=== PATIENT | female | born 1990 | race Caucasian/White ===

== ENCOUNTER 2016-04-14 14:47 | Outpatient (CLI) | END 2016-04-14 14:48 | disposition home or self-care (01) ==

== ENCOUNTER 2016-06-26 22:03 | Emergency (ER) | payer MEDICAID | END 2016-06-26 23:13 | disposition home or self-care (01) | DX: S93.401A Sprain of unspecified ligament of right ankle, initial encounter (principal); X50.0XXA Overexertion from strenuous movement or load, initial encounter; Y92.017 Garden or yard in single-family (private) house as the place of occurrence of the external cause ==

== ENCOUNTER 2016-08-16 21:20 | Emergency (ER) | payer MEDICAID ==
[2016-08-16] MEDS ORDERED: IBUPROFEN 600 MG TABLET PO STA (23:38)
[2016-08-16] MEDS ORDERED: ONDANSETRON ODT 4 MG TABLET TL STA (23:39)
[2016-08-16] MEDS ORDERED: ONDANSETRON ODT 4 MG TABLET ONE (23:43)
[2016-08-16] MEDS ORDERED: IBUPROFEN 600 MG TABLET PO ONE (23:43)
[2016-08-17] MEDS ORDERED: SODIUM CHLORIDE 0.9% 1,000 ML IV ONE (00:33)
== END 2016-08-17 01:19 | disposition home or self-care (01) ==
DX: M54.5 Low back pain (principal); J06.9 Acute upper respiratory infection, unspecified; B97.89 Other viral agents as the cause of diseases classified elsewhere; H92.01 Otalgia, right ear; R50.9 Fever, unspecified
CPT/HCPCS: 81003; 81025; 87070; 87430; 96360; 99283; 99284; A9270; Q0162

== ENCOUNTER 2016-08-17 17:06 | Emergency (ER) | payer MEDICAID ==
[2016-08-17] MEDS ORDERED: DEXAMETHASONE 10 MG/ML VIAL PO STA (19:27)
[2016-08-17] MEDS ORDERED: DEXAMETHASONE 10 MG/ML VIAL ONE (19:30)
[2016-08-17] MEDS ORDERED: CHERRY SYRUP 10 ML UDC PO ONE (19:30)
== END 2016-08-17 19:41 | disposition home or self-care (01) ==
DX: J06.9 Acute upper respiratory infection, unspecified (principal); B97.89 Other viral agents as the cause of diseases classified elsewhere

== ENCOUNTER 2016-08-29 21:48 | Emergency (ER) | payer MEDICAID ==
[2016-08-29 21:53] VITALS: BP 124/84
[2016-08-29] MEDS ORDERED: PSEUDOEPHEDRINE 30 MG TABLET PO STA (22:01)
[2016-08-29] MEDS ORDERED: AMOXICILLIN 250 MG CAPSULE PO STA (22:01)
--- NOTE | 2016-08-29 22:03 | ED Physician Documentation ---
PD HPI HEENT - Stated complaint Stated Complaint: SORE THROAT, BILAT EAR PX - Chief complaint Chief Complaint: Heent - History obtained from History obtained from: Patient - History of Present Illness Timing - onset: How many weeks ago (2) Timing - details: Gradual onset, Still present Location: Right ear, Left ear Worsens: Swalllowing Associated symptoms: Congestion, Headache, Cough Similar symptoms before: No diagnosis Recently seen: Not recently seen - Additional information Additional information: Patient is a 25 year old female with no significant past medical history who is presenting to the emergency department for ear pain, congestion, fevers, and sore throat. Patient states that the symptoms have been going on for the last 2 weeks and have become progressively worsen. patient states that she came in tonight because the pain was getting so bad and that she could not hear anymore. Review of Systems Constitutional: reports: Fever, Chills Eyes: denies: Loss of vision, Decreased vision Ears: reports: Loss of hearing, Ear pain. denies: Drainage/discharge, Tinnitus/ ringing Nose: reports: Congestion, Sinus pressure / pain. denies: Rhinorrhea / runny nose Throat: reports: Sore throat. denies: Dental pain / toothache Cardiac: denies: Chest pain / pressure, Palpitations Respiratory: reports: Cough. denies: Wheezing GI: denies: Abdominal Pain, Nausea, Vomiting : denies: Dysuria, Frequency, Hesitancy Skin: denies: Rash, Lesions Musculoskeletal: denies: Neck pain, Back pain, Extremity pain Neurologic: denies: Generalized weakness, Focal weakness, Numbness Immunocompromised: denies: Immunocompromised PD PAST MEDICAL HISTORY - Past Medical History Past Medical History: No Cardiovascular: None Respiratory: None Neuro: None Endocrine/Autoimmune: None GI: None CO OP: None : None HEENT: None Psych: None Musculoskeletal: None Derm: None - Past Surgical History Past Surgical History: Yes /CO OP: section HEENT: Myringotomy (tubes) - Present Medications Home Medications: Ambulatory Orders Medication Instructions Recorded Confirmed Ethinyl Estradiol/Drospirenone 1 tab PO DAILY 06/26/16 08/17/16 [Kerline 28 Tablet] Amoxicillin 1,000 mg PO TID #30 capsule 08/29/16 - Allergies Allergies/Adverse Reactions: Allergies Allergy/AdvReac Type Severity Reaction Status Date / Time No Known Drug Allergies Allergy Verified 08/29/16 21:58 - Social History Does the pt smoke?: No Smoking Status: Never smoker Does the pt drink ETOH?: No Does the pt have substance abuse?: No - Immunizations Immunizations are current?: Yes - POLST Patient has POLST: No PD ED PE NORMAL - General General: Alert and oriented X 3, No acute distress - HEENT HEENT: Atraumatic, PERRL - Neck Neck: Supple, no meningeal sign - Cardiac Cardiac: RRR, No murmur - Respiratory Respiratory: No respiratory distress, Clear bilaterally - Abdomen Abdomen: Soft, Non tender, Non distended - Derm Derm: Normal color, Warm and dry, No rash - Extremities Extremities: No deformity, No edema - Neuro Neuro: Alert and oriented X 3, 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, No motor deficit, No sensory deficit, Normal speech - Psych Psych: Normal mood, Normal affect PD ED PE EXPANDED - HEENT HEENT: R TM loss of landmarks, L TM loss of landmarks (serious buid up in both ears, worse on the left ), Nasal congestion, Other (post nasal drip) Results - Vitals Vitals: Vital Signs - 24 hr 08/29/16 21:49 Temperature 36.5 C Heart Rate 84 Respiratory 16 Rate Blood Pressure 124/84 H O2 Saturation 100 Oxygen O2 Source Room air PD MEDICAL DECISION MAKING - ED course Complexity details: reviewed old records, re-evaluated patient, considered differential, d/w patient ED course: Patient was seen and examined at bedside. patient was in no acute distress, but did have serous accumulation behind her tms. patient was treated with a decongestant and amoxicillin. Patient required no further work up and was stable for discharge with outpatient follow up. Departure - Departure Disposition: 01 Home, Self Care Clinical Impression: Otitis media Condition: Good Instructions: ED Otitis Media Serous Adult Follow-Up: primary,care provider [Other] - Within 1 week Prescriptions: Amoxicillin 1,000 mg PO TID #30 capsule Comments: Your symptoms today are being caused by an inner ear infection. You had your first dose of antibiotics today and will need to take it three times a day for the next 5 days. You should take it with yogurt or probiotics to decrease the GI side effects. You should take over the counter cold and flu meds. you should follow up with your pmd if your symptoms persist over the next week. You should return to the emergency department for change in mental status, uncontrollable fevers, neurological deficit, new, worsening or uncontrollable symptoms.
[2016-08-29] MEDS ORDERED: AMOXICILLIN 250 MG CAPSULE PO ONE (22:04)
[2016-08-29] MEDS ORDERED: PSEUDOEPHEDRINE 30 MG TABLET PO ONE (22:05)
== END 2016-08-29 22:11 | disposition home or self-care (01) ==
LOC: ED 21:48
DX: H66.93 Otitis media, unspecified, bilateral (principal)
CPT/HCPCS: 99283; A9270

== ENCOUNTER 2017-05-04 10:05 | Outpatient (CLI) | payer MEDICAID ==
[2017-05-04 11:42] LABS: T4 (THYROXINE) 9.19 ug/dL (6.09-12.23)
[2017-05-04 11:48] LABS: THYROID STIMULATING HORMONE 1.43 uIU/mL (0.34-5.60)
[2017-05-04 11:49] LABS: FREE T4 (FREE THYROXINE) 0.84 ng/dL (0.58-1.64)
== END 2017-05-04 10:06 | disposition home or self-care (01) ==
LOC: LAB 10:05
PROVIDERS: ATTEND Obstetrics & Gynecology
DX: Z13.29 Encounter for screening for other suspected endocrine disorder (principal)
CPT/HCPCS: 36415; 84436; 84439; 84443

== ENCOUNTER 2018-04-14 15:37 | Outpatient (CLI) | payer MEDICAID ==
[2018-04-14 19:51] LABS: THYROID STIMULATING HORMONE 1.4 uIU/mL (0.34-5.60)
[2018-04-14 20:18] LABS: FOLLICLE STIMULATING HORMONE 4.87 mIU/mL
[2018-04-14 20:19] LABS: LUTEINIZING HORMONE 3.8 mIU/mL
== END 2018-04-14 23:59 | disposition home or self-care (01) ==
LOC: LAB.N 15:37
PROVIDERS: ATTEND Obstetrics & Gynecology
DX: N92.0 Excessive and frequent menstruation with regular cycle (principal)
CPT/HCPCS: 36415; 83001; 83002; 84443

== ENCOUNTER 2018-07-14 09:54 | Emergency (ER) | payer MEDICAID ==
[2018-07-14 10:09] VITALS: BP 111/93
[2018-07-14] MEDS ORDERED: DEXAMETHASONE 10 MG/ML VIAL PO STA (10:11)
--- NOTE | 2018-07-14 10:14 | ED Physician Documentation ---
PD HPI HEENT - Stated complaint Stated Complaint: RIGHT EAR PX - Chief complaint Chief Complaint: Heent - History obtained from History obtained from: Patient - History of Present Illness Timing - onset: How many days ago (3) Timing - duration: Days (3) Timing - details: Gradual onset, Still present Location: Right ear, Throat Improves: Medication Worsens: Swalllowing Associated symptoms: Congestion, Rhinorrhea, Headache, Cough Similar symptoms before: Diagnosis (OM) Recently seen: Not recently seen - Additional information Additional information: 27-year-old female with 2 young children who are sick with otitis has developed cough congestion and ear pain. She has had these symptoms previously she has been treated for otitis in August of last year. Review of Systems Constitutional: denies: Fever Eyes: denies: Decreased vision Ears: reports: Ear pain Nose: reports: Rhinorrhea / runny nose, Congestion Throat: reports: Sore throat Cardiac: denies: Chest pain / pressure, Palpitations Respiratory: reports: Cough. 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 : None HEENT: None Psych: None Musculoskeletal: None Derm: None - Past Surgical History Past Surgical History: Yes /STEEL ERECTING PUSHER: section HEENT: Myringotomy (tubes) - Present Medications Home Medications: Ambulatory Orders Medication Instructions Recorded Confirmed Ethinyl Estradiol/Drospirenone 1 tab PO DAILY 06/26/16 08/17/16 [Kerline 28 Tablet] Amoxicillin 1,000 mg PO TID #30 capsule 08/29/16 Amox/Clav 875/125 [Augmentin] 1 each PO Q12H #20 tablet 07/14/18 - Allergies Allergies/Adverse Reactions: Allergies Allergy/AdvReac Type Severity Reaction Status Date / Time No Known Drug Allergies Allergy Verified 07/14/18 10:03 - Social History Does the pt smoke?: No Smoking Status: Never smoker Does the pt drink ETOH?: No Does the pt have substance abuse?: No - Immunizations Immunizations are current?: Yes - POLST Patient has POLST: No PD ED PE NORMAL - Vitals Vital signs reviewed: Yes (tachy and hypertensive ) - General General: Alert and oriented X 3, No acute distress, Well developed/nourished - HEENT HEENT: Atraumatic, PERRL, EOMI, Pharynx benign, Other (both TM's are inflamed with distortion of the landmarks. The left is more inflamed than the right. 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 Departure - Departure Disposition: 01 Home, Self Care Clinical Impression: Otitis media Condition: Stable Instructions: ED Otitis Media Acute Adult Follow-Up: Segundo Albarran MD [Primary Care Provider] - Prescriptions: Amox/Clav 875/125 [Augmentin] 1 each PO Q12H #20 tablet
[2018-07-14] MEDS ORDERED: CHERRY SYRUP 10 ML UDC PO ONE (10:19)
== END 2018-07-14 10:19 | disposition home or self-care (01) ==
LOC: ED 09:54
DX: H66.90 Otitis media, unspecified, unspecified ear (principal)
CPT/HCPCS: 99283; A9270

== ENCOUNTER 2018-07-26 09:11 | Emergency (ER) | payer MEDICAID ==
[2018-07-26 09:19] VITALS: BP 132/83
[2018-07-26] MEDS ORDERED: CHERRY SYRUP 10 ML UDC PO ONE (09:49)
[2018-07-26] MEDS ORDERED: DEXAMETHASONE 10 MG/ML VIAL PO STA (09:49)
--- NOTE | 2018-07-26 09:52 | ED Physician Documentation ---
PD HPI HEENT - Stated complaint Stated Complaint: R EAR PX - Chief complaint Chief Complaint: Heent - History obtained from History obtained from: Patient - History of Present Illness Timing - onset: How many days ago (3) Timing - duration: Days (3) Timing - details: Gradual onset, Still present Location: Right ear Improves: Other (warm compress) Worsens: Swalllowing Associated symptoms: Congestion, Rhinorrhea, Cough Similar symptoms before: Diagnosis (OM) Recently seen: Emergency Dept - Additional information Additional information: 27-year-old female diagnosed with bilateral otitis 12 days ago finished a course of Augmentin and during the last part of the course she began to experience worsening pain in the right ear. She has persistence of this and she has some cough. She is now coughing up some yellow and green phlegm again. She reports that she did get some relief with the prior treatment that started the evening that she got home. Her symptoms have now again worsened. Review of Systems Constitutional: denies: Fever Eyes: denies: Decreased vision Ears: reports: Ear pain Nose: reports: Rhinorrhea / runny nose, Congestion Throat: reports: Sore throat Cardiac: denies: Chest pain / pressure, Palpitations Respiratory: reports: Cough. 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 : None HEENT: None Psych: None Musculoskeletal: None Derm: None - Past Surgical History Past Surgical History: Yes /PHOTO MASK INSPECTOR: section HEENT: Myringotomy (tubes) - Present Medications Home Medications: Ambulatory Orders Medication Instructions Recorded Confirmed Ethinyl Estradiol/Drospirenone 1 tab PO DAILY 06/26/16 08/17/16 [Kerline 28 Tablet] Amoxicillin 1,000 mg PO TID #30 capsule 08/29/16 Amox/Clav 875/125 [Augmentin] 1 each PO Q12H #20 tablet 07/14/18 Azithromycin [Zithromax] 250 mg PO DAILY #6 tablet 07/26/18 - Allergies Allergies/Adverse Reactions: Allergies Allergy/AdvReac Type Severity Reaction Status Date / Time No Known Drug Allergies Allergy Verified 07/26/18 09:19 - Social History Does the pt smoke?: No Smoking Status: Never smoker Does the pt drink ETOH?: No Does the pt have substance abuse?: No - Immunizations Immunizations are current?: Yes - POLST Patient has POLST: No PD ED PE NORMAL - Vitals Vital signs reviewed: Yes (hpyertensive ) - General General: Alert and oriented X 3, No acute distress, Well developed/nourished - HEENT HEENT: Atraumatic, PERRL, EOMI, Pharynx benign, Other (The right TM is inflamed along the anterior rim only and there is retraction of the TM. The left is clear. 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, No motor deficit, No sensory deficit, Normal speech Eye Opening: Spontaneous Motor: Obeys Commands Verbal: Oriented GCS Score: 15 - Psych Psych: Normal mood, Other (affect is flat ) Results - Vitals Vitals: Vital Signs - 24 hr 07/26/18 09:17 Temperature 35.9 C L Heart Rate 100 Respiratory 17 Rate Blood Pressure 132/83 H O2 Saturation 100 Oxygen O2 Source Room air PD MEDICAL DECISION MAKING - ED course Complexity details: reviewed old records, considered differential, d/w patient ED course: 27-year-old female with recurrent right otitis while on Augmentin is administered dexamethasone 10 mg orally we will place her on to a azithromycin. Departure - Departure Disposition: 01 Home, Self Care Clinical Impression: Otitis media Qualifiers: Otitis media type: suppurative Chronicity: acute Laterality: right Recurrence: recurrent Spontaneous tympanic membrane rupture: without spontaneous rupture Qualified Code(s): H66.004 - Acute suppurative otitis media without spontaneous rupture of ear drum, recurrent, right ear Condition: Stable Instructions: ED Otitis Media Acute Adult Follow-Up: [facility] [Provider Group] Prescriptions: Azithromycin [Zithromax] 250 mg PO DAILY #6 tablet
== END 2018-07-26 09:58 | disposition home or self-care (01) ==
LOC: ED 09:11
DX: H66.004 Acute suppurative otitis media without spontaneous rupture of ear drum, recurrent, right ear (principal)
CPT/HCPCS: 99283

== ENCOUNTER 2018-10-03 08:00 | Outpatient (CLI) | payer MEDICAID ==
[2018-10-03 12:13] LABS: BASOPHILS % (AUTO) 0.5 %; EOSINOPHILS # (AUTO) 0.2 10^3/uL (0.0-0.7); EOSINOPHILS % (AUTO) 2.5 %; HGB - HEMOGLOBIN 12.8 g/dL (12.0-16.0); LYMPHOCYTES # (AUTO) 2.4 10^3/uL (1.5-3.5); LYMPHOCYTES % (AUTO) 40.2 %; MEAN CORPUSCULAR HEMOGLOBIN 28.9 pg (27.0-31.0); MEAN CORPUSCULAR HGB CONC 32.4 g/dL (32.0-36.0); MEAN CORPUSCULAR VOLUME 89.2 fL (81.0-99.0); MONOCYTES # (AUTO) 0.4 10^3/uL (0.0-1.0); MONOCYTES % (AUTO) 6.2 %; NEUTROPHILS % (AUTO) 50.4 %; PLT - PLATELET COUNT 393 10^3/uL (130-450); RED BLOOD COUNT 4.43 10^6/uL (4.20-5.40); RED CELL DISTRIBUTION WIDTH 12.4 % (12.0-15.0); WHITE BLOOD COUNT 5.9 x10^3/uL (4.8-10.8)
[2018-10-03 12:36] LABS: T4 (THYROXINE) 7.36 ug/dL (6.09-12.23)
[2018-10-03 12:40] LABS: THYROID STIMULATING HORMONE 1.87 uIU/mL (0.34-5.60)
[2018-10-03 12:42] LABS: ALBUMIN/GLOBULIN RATIO 1.3 (1.0-2.2); BILIRUBIN,TOTAL 0.5 mg/dL (0.2-1.0); CALCIUM 9.2 mg/dL (8.5-10.3); CREATININE 0.4 mg/dL (0.4-1.0); TOTAL PROTEIN 7.2 g/dL (6.7-8.2)
[2018-10-03 12:44] LABS: HB2 TOTAL 13.4 g/dL; HEMOGLOBIN A1C 0.48 g/dL; HEMOGLOBIN A1C % 5.4 % (4.6-6.2)
== END 2018-10-03 23:59 | disposition home or self-care (01) ==
LOC: LAB.WCP 08:00
PROVIDERS: ATTEND Physician Assistant
DX: Z00.00 Encounter for general adult medical examination without abnormal findings (principal); R53.83 Other fatigue
CPT/HCPCS: 36415; 80053; 83036; 84436; 84443; 85025

== ENCOUNTER 2019-12-22 07:00 | Outpatient (CLI) | payer MEDICAID ==
[2019-12-22 18:51] LABS: MUDS CUTOFF CONCENTRATIONS CUTOFF CONC BELOW:
[2019-12-22 19:28] LABS: BILIRUBIN,URINE NEGATIVE (NEGATIVE); GLUCOSE, URINE (UA) NEGATIVE (NEGATIVE); KETONES,URINE (UA) NEGATIVE (NEGATIVE); LEUKOCYTE ESTERASE, URINE NEGATIVE (NEGATIVE); NITRITE,URINE NEGATIVE (NEGATIVE); OCCULT BLOOD,URINE NEGATIVE (NEGATIVE); PROTEIN,URINE NEGATIVE (NEGATIVE); UROBILINOGEN,URINE 0.2 (NORMAL) E.U./dL (NORMAL)
[2019-12-22 19:33] LABS: CLARITY,URINE CLEAR (CLEAR)
[2019-12-22 19:37] LABS: AMPHETAMINE SCREEN,URINE NEGATIVE (NEGATIVE); BENZODIAZEPINES SCREEN, URINE NEGATIVE (NEGATIVE); COCAINE SCREEN URINE NEGATIVE (NEGATIVE); METHADONE SCREEN, URINE NEGATIVE (NEGATIVE); METHAMPHETAMINES SCREEN, URINE NEGATIVE (NEGATIVE); OPIATE SCREEN, URINE NEGATIVE (NEGATIVE); OXYCODONE SCREEN, URINE NEGATIVE (NEGATIVE); PROPOXYPHENE SCREEN, URINE NEGATIVE (NEGATIVE); TRICYCLIC ANTIDEPRESSANT,URINE NEGATIVE (NEGATIVE)
[2019-12-22 19:52] LABS: BACTERIA,URINE Moderate /HPF (None Seen); RBC,URINE 0-5 /HPF (0-5); SQUAMOUS EPITHELIAL CELL,UR MOD Squamous (<= Few)
== END 2019-12-22 23:59 | disposition home or self-care (01) ==
LOC: LAB.R 07:00
PROVIDERS: ATTEND Nurse Practitioner Obstetrics & Gynecology
DX: Z32.01 Encounter for pregnancy test, result positive (principal)
CPT/HCPCS: 80306; 81001; 87086

== ENCOUNTER 2019-12-31 18:03 | Outpatient (CLI) | payer MEDICAID ==
--- NOTE | 2019-12-31 19:09 | Ultrasound Report ---
PROCEDURE: OB First Trimester INDICATIONS: POSITIVE TEST OUTSIDE/PRIOR DATING DATA: Last menstrual period (LMP): 10/12/2019. LMP-based estimated date of delivery (SERA): 07/18/2020. First dating scan (date and location): Current exam. Estimated date of delivery (SERA) from first dating scan: 08/23/2020. TECHNIQUE: Real-time scanning was performed of the fetus and maternal pelvic organs, with image documentation. COMPARISON: No previous study is available for comparison FINDINGS: Embryo: Intrauterine gestational sac is seen with yolk sac and pole. The crown-rump length is consistent with a 6 week 2 day gestation. heart rate is 131 bpm. A small subchorionic hemorrhag e is seen measuring 0.5 x 0.4 x 0.4 cm. Measurement variability in dating: +/- 4 weeks by LMP, +/- 7 days by mean sac diameter (use before 6 weeks gestation if crown-rump length not able to be measured), +/- 5 days by crown-rump length (6-12 weeks gestation). Maternal organs: The uterus is retroverted. Ovaries are within normal limits in size. A left ovarian corpus luteum cyst is noted.. There is trace free fluid in the pelvis. Limited images through the k idneys demonstrate no hydronephrosis. IMPRESSION: 1. Single live intrauterine with crown-rump length compatible with a 6 week 2 day gestatio n giving an SERA of 08/21/2020. heart rate is 131 bpm. 2. Small subchorionic hemorrhage measures 5 x 4 x 4 mm. Reviewed by: Carlyle Watson MD on 12/31/2019 7:08 PM PDT Approved by: Carlyle Watson MD on 12/31/2019 7:08 PM PDT Station ID: [id number]
--- NOTE | 2020-01-01 07:33 | Ultrasound Report ---
PROCEDURE: OB Transvaginal INDICATIONS: POSITIVE TEST OUTSIDE/PRIOR DATING DATA: Last menstrual period (LMP): 10/12/2019. LMP-based estimated date of delivery (SERA): 07/18/2020. First dating scan (date and location): Current exam. Estimated date of delivery (SERA) from first dating scan: 08/23/2020. TECHNIQUE: Real-time scanning was performed of the fetus and maternal pelvic organs, with image documentation. Please note that the transvaginal images from this exam are included on the OB first trimester ultras ound exam (accession number [id number]) performed at the same time. COMPARISON: No previous study is available for comparison FINDINGS: Embryo: Intrauterine gestational sac is seen with yolk sac and pole. The crown-rump length is consistent with a 6 week 2 day gestation. heart rate is 131 bpm. A small subchorionic hemorrhag e is seen measuring 0.5 x 0.4 x 0.4 cm. Measurement variability in dating: +/- 4 weeks by LMP, +/- 7 days by mean sac diameter (use before 6 weeks gestation if crown-rump length not able to be measured), +/- 5 days by crown-rump length (6-12 weeks gestation). Maternal organs: The uterus is retroverted. Ovaries are within normal limits in size. A left ovarian corpus luteum cyst is noted.. There is trace free fluid in the pelvis. Limited images through the k idneys demonstrate no hydronephrosis. IMPRESSION: 1. Single live intrauterine with crown-rump length compatible with a 6 week 2 day gestatio n giving an SERA of 08/21/2020. heart rate is 131 bpm. 2. Small subchorionic hemorrhage measures 5 x 4 x 4 mm. Reviewed by: Carlyle Watson MD on 12/31/2019 7:10 PM PDT Approved by: Carlyle Watson MD on 12/31/2019 7:10 PM PDT Station ID: [id number]
== END 2019-12-31 18:04 | disposition home or self-care (01) ==
LOC: DI 18:03
PROVIDERS: ATTEND Nurse Practitioner Obstetrics & Gynecology
DX: Z32.01 Encounter for pregnancy test, result positive (principal)
CPT/HCPCS: 76801; 76817

== ENCOUNTER 2020-01-25 13:10 | Outpatient (CLI) | payer MEDICAID ==
[2020-01-25 13:37] LABS: BASOPHILS % (AUTO) 0.3 %; EOSINOPHILS % (AUTO) 0.4 %; HGB - HEMOGLOBIN 13.2 g/dL (12.0-16.0); LYMPHOCYTES # (AUTO) 2.4 10^3/uL (1.5-3.5); LYMPHOCYTES % (AUTO) 25.4 %; MEAN CORPUSCULAR HEMOGLOBIN 30.2 pg (27.0-31.0); MEAN CORPUSCULAR HGB CONC 34.2 g/dL (32.0-36.0); MEAN CORPUSCULAR VOLUME 88.3 fL (81.0-99.0); MEAN PLATELET VOLUME 9.3 fL (7.9-10.8); MONOCYTES # (AUTO) 0.5 10^3/uL (0.0-1.0); MONOCYTES % (AUTO) 5.2 %; NEUTROPHILS # (AUTO) 6.4 10^3/uL (1.5-6.6); NEUTROPHILS % (AUTO) 68.4 %; PLT - PLATELET COUNT 352 10^3/uL (130-450); RED BLOOD COUNT 4.37 10^6/uL (4.20-5.40); RED CELL DISTRIBUTION WIDTH 12.3 % (12.0-15.0); WHITE BLOOD COUNT 9.4 x10^3/uL (4.8-10.8)
[2020-01-25 13:38] LABS: BILIRUBIN,URINE NEGATIVE (NEGATIVE); GLUCOSE, URINE (UA) NEGATIVE (NEGATIVE); KETONES,URINE (UA) TRACE mg/dL (NEGATIVE); LEUKOCYTE ESTERASE, URINE NEGATIVE (NEGATIVE); NITRITE,URINE NEGATIVE (NEGATIVE); OCCULT BLOOD,URINE NEGATIVE (NEGATIVE); PH,URINE 5.5 PH (5.0-7.5); PROTEIN,URINE NEGATIVE (NEGATIVE); UROBILINOGEN,URINE 0.2 (NORMAL) E.U./dL (NORMAL)
[2020-01-25 13:39] LABS: CLARITY,URINE CLEAR (CLEAR)
[2020-01-25 13:50] LABS: ALBUMIN 3.6 g/dL (3.2-5.5); BACTERIA,URINE Few /HPF (None Seen); BILIRUBIN,TOTAL 0.3 mg/dL (0.2-1.0); CALCIUM 9.2 mg/dL (8.5-10.3); CREATININE 0.5 mg/dL (0.4-1.0); RBC,URINE 0-5 /HPF (0-5); SQUAMOUS EPITHELIAL CELL,UR MOD Squamous (<= Few); TOTAL PROTEIN 7.1 g/dL (6.7-8.2)
[2020-01-25 14:04] LABS: CREATININE,URINE 253.2 mg/dL
[2020-01-26 12:14] LABS: HEPATITIS C ANTIBODY NON-REACTIVE (NON-REACTIVE)
[2020-01-26 12:42] LABS: HEPATITIS B SURFACE ANTIGEN NON-REACTIVE (NON-REACTIVE)
[2020-01-26 13:25] LABS: HIV AG/AB 4TH GEN NON-REACTIVE (NON-REACTIVE)
== END 2020-01-25 13:11 | disposition home or self-care (01) ==
LOC: LAB 13:10
PROVIDERS: ATTEND Obstetrics & Gynecology
DX: Z36.8A Encounter for antenatal screening for other genetic defects (principal); O12.11 Gestational proteinuria, first trimester; O99.211 Obesity complicating pregnancy, first trimester; Z3A.00 Weeks of gestation of pregnancy not specified
CPT/HCPCS: 36415; 80053; 81001; 81599; 82570; 83036; 84156; 84443; 85025; 86592; 86762; 86787; 86803; 86850; 86900; 86901; 87086; 87340; 87389

== ENCOUNTER 2020-02-01 08:00 | Outpatient (CLI) | payer MEDICAID ==
[2020-02-01 15:57] LABS: CREATININE 24 HOUR,URINE 1557 mg/24h (600-1800); CREATININE,URINE 55.6 mg/dL; TOTAL PROTEIN,URINE TIMED < 6 mg/dL; TOTAL VOLUME 24HRS,URINE 2800 mL
== END 2020-02-01 23:59 ==
LOC: LAB.R 08:00
PROVIDERS: ATTEND Obstetrics & Gynecology
DX: R80.9 Proteinuria, unspecified (principal)
CPT/HCPCS: 82570; 84156

== ENCOUNTER 2020-02-01 13:23 | Outpatient (CLI) | payer MEDICAID ==
[2020-02-01 20:25] LABS: HEMOGLOBIN A1c% 4.9 % (4.27-6.07)
== END 2020-02-01 13:24 | disposition home or self-care (01) ==
LOC: LAB 13:23
PROVIDERS: ATTEND Obstetrics & Gynecology
DX: O99.211 Obesity complicating pregnancy, first trimester (principal); R80.9 Proteinuria, unspecified
CPT/HCPCS: 36415; 82570; 83036; 84156

== ENCOUNTER 2020-02-15 13:14 | Outpatient (CLI) | payer MEDICAID | END 2020-02-15 13:15 | disposition home or self-care (01) | LOC: LAB 13:14 | PROVIDERS: ATTEND Obstetrics & Gynecology | DX: O99.211 Obesity complicating pregnancy, first trimester (principal) | CPT/HCPCS: 36415; 82950 ==

== ENCOUNTER 2020-04-03 14:50 | Outpatient (CLI) | payer MEDICAID ==
--- NOTE | 2020-04-04 09:40 | Ultrasound Report ---
PROCEDURE: OB Detailed Eval INDICATIONS: SUPERVISION OF NORMAL OUTSIDE/PRIOR DATING DATA: Last menstrual period (LMP): 02/02/2020. LMP-based estimated date of delivery (SERA): 07/18/2020 First dating scan (date and location): 10/30/2019. Estimated date of delivery (SERA) from first dating scan: 08/23/2020. TECHNIQUE: Real-time scanning was performed of the fetus, with image documentation and biometric measurements. Endovaginal scanning: Not performed COMPARISON: None. FINDINGS: This exam is limited due to maternal body habitus. General: A single living intrauterine gestation is present. Presentation: Variable Placenta: Placental position is posterior and low-lying, with a placental edge to cervical os distan ce of 6 mm. Amniotic fluid index: 17.5 cm, 79th percentile for gestational age. heart rate: 162 beats per minute. Maternal cervical canal: 5.4 cm long; normal length is 2.5 cm or more. biometrics: Biparietal diameter: 5.1 cm Head circumference: 19.1 cm Abdominal circumference: 16.4 cm Femur length: 3.3 cm Estimated gestational age from initial scan: not applicable. Composite gestational age from present scan: 20 weeks 5 days Estimated weight and percentile: 393 g, 98th percentile Measurement variability in biometric dating: +/- 10 days from 12-20 weeks gestation, +/- 2 weeks from 20-30 weeks gestation, +/- 3 weeks at 30 weeks gestation or later. Anatomic survey: Neuro: Ventricles are normal at less than 10 mm. Cisterna magna is normal at 3-11 mm. Cerebellum i s normal in size and morphology. Nuchal skin fold: Not well seen due to maternal body habitus. Face: Nose and lips, facial profile are normal. Spine: Grossly no evidence for dysraphism, although a repeat scan is recommended to confirm Heart: 4-chambered heart is present, with normal ventricular outflow tracts. Diaphragm: Diaphragm is intact. Stomach: Left-sided stomach is present. Kidneys: No hydronephrosis. Normal is less than 5 mm in 2nd trimester, less than 7 mm in 3rd trimester. Cord: 3 vessel cord has orthotopic insertion. Bladder: Normal in size. Extremities: All 4 extremities are visualized. IMPRESSION: Single live intrauterine gestation with average ultrasound age of 20 weeks 5 days. Limited anatomic evaluation due to maternal body habitus. Specifically the nuchal fold and spin e are not well seen. Repeat evaluation is recommended. Reviewed by: Yariel Fatima MD on 04/04/2020 9:39 AM PST Approved by: Yariel Fatima MD on 04/04/2020 9:39 AM PST Station ID: [id number]
== END 2020-04-03 14:51 | disposition home or self-care (01) ==
LOC: DI 14:50
PROVIDERS: ATTEND Obstetrics & Gynecology
DX: Z34.90 Encounter for supervision of normal pregnancy, unspecified, unspecified trimester (principal)

== ENCOUNTER 2020-05-08 15:20 | Outpatient (CLI) | payer MEDICAID ==
--- NOTE | 2020-05-08 16:54 | Ultrasound Report ---
PROCEDURE: OB F/U or Repeat INDICATIONS: OBESITY COMPLICATING , F U TO FAS OUTSIDE/PRIOR DATING DATA: Last menstrual period (LMP): . LMP-based estimated date of delivery (SERA): 07/18/2020. First dating scan (date and location): 12/31/2019. Estimated date of delivery (SERA) from first dating scan: 08/23/2020. TECHNIQUE: Real-time scanning was performed of the fetus, with image documentation and biometric measurements. COMPARISON: OB ultrasound 12/31/2019, 04/03/2020. FINDINGS: General: A single living intrauterine gestation is present. Presentation: Cephalic Placenta: Placental position is posterior, without previa. Placenta is currently measured 4 cm from the internal os. Amniotic fluid index: 24.5 cm, 99th percentile for gestational age. heart rate: 169 beats per minute. Maternal cervical canal: 4.5 cm long; normal length is 2.5 cm or more. biometrics: Estimated gestational age from initial scan: 24 weeks 5 days Other: Spine is within normal limits. Nuchal region as well as neck are still suboptimal evaluation. IMPRESSION: 1. Single live intrauterine with out visualization of previous low-lying placenta. 2. Nuchal region maintains suboptimal evaluation. Spine is within normal limits. Reviewed by: Sonia Grimes MD on 05/08/2020 4:53 PM PST Approved by: Sonia Grimes MD on 05/08/2020 4:53 PM PST Station ID: [id number]
== END 2020-05-08 15:21 | disposition home or self-care (01) ==
LOC: DI 15:20
PROVIDERS: ATTEND Obstetrics & Gynecology
DX: O99.212 Obesity complicating pregnancy, second trimester (principal); Z3A.24 24 weeks gestation of pregnancy

== ENCOUNTER 2020-05-15 08:00 | Outpatient (CLI) | payer MEDICAID ==
[2020-05-15 13:53] LABS: MEAN CORPUSCULAR HEMOGLOBIN 29.3 pg (27.0-31.0); MEAN CORPUSCULAR HGB CONC 32.4 g/dL (32.0-36.0); MEAN CORPUSCULAR VOLUME 90.2 fL (81.0-99.0); MEAN PLATELET VOLUME 9.4 fL (7.9-10.8); RED BLOOD COUNT 3.76 10^6/uL (4.20-5.40); RED CELL DISTRIBUTION WIDTH 12.7 % (12.0-15.0); WHITE BLOOD COUNT 9.7 x10^3/uL (4.8-10.8)
== END 2020-05-15 23:59 | disposition home or self-care (01) ==
LOC: LAB 08:00
PROVIDERS: ATTEND Obstetrics & Gynecology
DX: Z36.8A Encounter for antenatal screening for other genetic defects (principal)
CPT/HCPCS: 36415; 82950; 85027

== ENCOUNTER 2020-06-18 11:42 | Outpatient (CLI) | payer MEDICAID ==
[2020-06-18 12:20] LABS: GTT GLUCOSE,FASTING 89 mg/dL (70-100)
== END 2020-06-18 11:43 | disposition home or self-care (01) ==
LOC: LAB 11:42
PROVIDERS: ATTEND Obstetrics & Gynecology
DX: O36.60X0 Maternal care for excessive fetal growth, unspecified trimester, not applicable or unspecified (principal)
CPT/HCPCS: 36415; 82951; 82952

== ENCOUNTER 2020-07-11 20:20 | Outpatient (CLI) | payer MEDICAID ==
[2020-07-11 20:43] VITALS: BP 102/66
[2020-07-11] MEDS ORDERED: LACTATED RINGERS 1,000 ML IV ONE (21:00)
--- NOTE | 2020-07-17 10:06 | PROCEDURE REPORT ---
- HPI Diagnosis/Indication for NST: Decreased movement Current EDU 08/21/20 Gestation 34 Weeks and 1 Days 3 Para 2 Vital Signs Temperature 37.3 C 07/11/20 20:41 Heart Rate 99 07/11/20 20:41 Respiratory Rate 16 07/11/20 20:41 Blood Pressure 102/66 07/11/20 20:41 O2 Saturation 98 07/11/20 20:41 Temperature 37.3 C 07/11/20 20:41 Heart Rate 99 07/11/20 20:41 Respiratory Rate 16 07/11/20 20:41 Blood Pressure 102/66 07/11/20 20:41 O2 Saturation 98 07/11/20 20:41 - NST Procedure NST Procedure Start Date 07/11/20 Start Time 20:40 Stop Time 21:50 Vibroacoustic Stimulation Used No Patient States Movement Yes: occas today but d/c FM x 5 days - Results and Plan Findings/Impression: Good FM, Reactive NST Plan: Pt left AMA. instructed Re FM, SROM, Contractions
== END 2020-07-11 23:25 | disposition left against medical advice (07) ==
LOC: WFO 20:20 → FBP 20:23 → WFO 22:25
PROVIDERS: ATTEND Obstetrics & Gynecology
DX: O36.8130 Decreased fetal movements, third trimester, not applicable or unspecified (principal); Z3A.34 34 weeks gestation of pregnancy
CPT/HCPCS: 59025; 99213

== ENCOUNTER 2020-07-15 16:41 | Outpatient (CLI) | payer MEDICAID ==
[2020-07-15 17:05] LABS: BILIRUBIN,URINE NEGATIVE (NEGATIVE); GLUCOSE, URINE (UA) NEGATIVE (NEGATIVE); KETONES,URINE (UA) 40 mg/dL (NEGATIVE); LEUKOCYTE ESTERASE, URINE TRACE (NEGATIVE); NITRITE,URINE NEGATIVE (NEGATIVE); OCCULT BLOOD,URINE NEGATIVE (NEGATIVE); PH,URINE 5.5 PH (5.0-7.5); PROTEIN,URINE NEGATIVE (NEGATIVE); UROBILINOGEN,URINE 0.2 (NORMAL) E.U./dL (NORMAL)
[2020-07-15 17:08] VITALS: BP 120/71
[2020-07-15 17:13] LABS: CLARITY,URINE HAZY (CLEAR)
[2020-07-15] MEDS ORDERED: NIFEdipine 10 MG CAPSULE PO ONE (17:20)
--- NOTE | 2020-07-15 17:25 | PROVIDER PROGRESS NOTE ---
- HPI Current : Vital Signs Temperature 98.2 F 07/15/20 16:54 Heart Rate 102 H 07/15/20 16:54 Respiratory Rate 18 07/15/20 16:54 Blood Pressure 120/71 07/15/20 16:54 Temperature 98.2 F 07/15/20 16:54 Heart Rate 102 H 07/15/20 16:54 Respiratory Rate 18 07/15/20 16:54 Blood Pressure 120/71 07/15/20 16:54 O2 Saturation - Procedures NST Procedure: NST Procedure Start Time 20:40 Stop Time 21:50 Service Date of procedure: 07/15/20 Findings: Baseline: BPM 150 Variability: Moderate Accelerations: Present Decelerations: Absent Trends in FHR over time: change in baseline to 135 Ricardo contractions in 10 minutes: 0 Impression: reactive Category 1 NST - Plan Plan: CC: abdominal and vaginal pain HPI: Having constant 6/10 intensity abdominal pain, suprapubic and to the sides, same bilaterally, no radiation, nothing makes it better/worse, associated with nausea for a bit. No changes in urination or defecation. Having stabbing pain in the deep vagina. No VB, LOF, or contractions. Feeling good FM. 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 History: records and PMH reviewed. O: AVSS Alert, resting comfortably, NAD Abd soft, slightly tender bilateral lower quadrant, no rebound EFG normal, vag pink without lesions, physiologic discharge present SVE closed/thick/high UA trace LCAE, rare bact. Neg wet mount and CMP CBC with Hct 31 A/P: 29yo at 34w5d with abdominal pain in 3rd trimester of , likely due to uterine stretching. This has been complicated by macrosomia (DM screening was normal). Possible acute cystitis with small LCE and few bacteria on UA. Due to status and current sx, will treat with keflex now and stop PRN no growth on culture. No evidence of vaginitis, labor, abruption, infection, kidney stone, or appendicitis. Advised that she could be early in a developing disease process--needs to return PRN worsening or with new symptoms. Otherwise rest, hydrate, warm packs, cold packs, stretch. Anemia Hct 31, start Fe.
[2020-07-15 17:27] LABS: BACTERIA,URINE Rare /HPF (None Seen); RBC,URINE 0-5 /HPF (0-5); SQUAMOUS EPITHELIAL CELL,UR FEW Squamous (<= Few); WBC,URINE 0-3 /HPF (0-5)
[2020-07-15 17:32] LABS: BASOPHILS % (AUTO) 0.1 %; EOSINOPHILS % (AUTO) 0.1 %; HCT - HEMATOCRIT 31.4 % (37.0-47.0); HGB - HEMOGLOBIN 10.2 g/dL (12.0-16.0); LYMPHOCYTES # (AUTO) 1.7 10^3/uL (1.5-3.5); LYMPHOCYTES % (AUTO) 19.7 %; MEAN CORPUSCULAR HEMOGLOBIN 26.7 pg (27.0-31.0); MEAN CORPUSCULAR HGB CONC 32.5 g/dL (32.0-36.0); MEAN CORPUSCULAR VOLUME 82.2 fL (81.0-99.0); MEAN PLATELET VOLUME 9.7 fL (7.9-10.8); MONOCYTES # (AUTO) 0.5 10^3/uL (0.0-1.0); MONOCYTES % (AUTO) 5.6 %; NEUTROPHILS # (AUTO) 6.4 10^3/uL (1.5-6.6); NEUTROPHILS % (AUTO) 74.3 %; PLT - PLATELET COUNT 263 10^3/uL (130-450); RED BLOOD COUNT 3.82 10^6/uL (4.20-5.40); WHITE BLOOD COUNT 8.6 x10^3/uL (4.8-10.8)
[2020-07-15 17:41] LABS: ALBUMIN 2.8 g/dL (3.2-5.5); ALBUMIN/GLOBULIN RATIO 0.8 (1.0-2.2); BILIRUBIN,TOTAL 0.5 mg/dL (0.2-1.0); CALCIUM 8.5 mg/dL (8.5-10.3); CREATININE 0.3 mg/dL (0.4-1.0); POTASSIUM 3.5 mmol/L (3.5-5.0); TOTAL PROTEIN 6.2 g/dL (6.7-8.2)
[2020-07-15 22:09] LABS: CHLAMYDIA TRACHOMATIS DNA NEGATIVE (NEGATIVE); NEISSERIA GONORRHOEAE DNA NEGATIVE (NEGATIVE); TRICHOMONAS VAGINALIS DNA NEGATIVE (NEGATIVE)
== END 2020-07-15 18:05 | disposition home or self-care (01) ==
LOC: WFO 16:41 → FBP 16:43 → WFO 18:05
PROVIDERS: ATTEND Obstetrics & Gynecology
DX: O99.891 Other specified diseases and conditions complicating pregnancy (principal); R10.9 Unspecified abdominal pain; Z3A.34 34 weeks gestation of pregnancy
CPT/HCPCS: 80053; 81001; 85025; 87086; 87210; 87491; 87591; 87661; 99213

== ENCOUNTER 2020-07-30 08:00 | Outpatient (CLI) | payer MEDICAID | END 2020-07-30 23:59 | disposition home or self-care (01) | LOC: LAB.WC 08:00 | PROVIDERS: ATTEND Obstetrics & Gynecology | DX: Z36.85 Encounter for antenatal screening for Streptococcus B (principal) | CPT/HCPCS: 87797 ==

== ENCOUNTER 2020-08-02 15:13 | Outpatient (CLI) | payer MEDICAID ==
--- NOTE | 2020-08-02 20:24 | Ultrasound Report ---
PROCEDURE: OB F/U or Repeat INDICATIONS: SUPERVISION OF HIGH RISK OUTSIDE/PRIOR DATING DATA: Last menstrual period (LMP): 10/12/2019. LMP-based estimated date of delivery (SERA): 07/18/2020. First dating scan (date and location): 12/31/2019. Estimated date of delivery (SERA) from first dating scan: 08/21/2020 (provider stated). TECHNIQUE: Real-time scanning was performed of the fetus, with image documentation and biometric measurements. Endovaginal scanning: Not performed COMPARISON: None. FINDINGS: General: A single living intrauterine gestation is present. Presentation: Vertex Placenta: Placental position is posterior, without previa. Amniotic fluid index: 16.3 cm, 67th percentile for gestational age. Largest pocket measures 5.9 cm heart rate: 149 beats per minute. biometrics: Biparietal diameter: 9.66 and a minute, 39 weeks 3 days Head circumference: 35.2 cm, 41 weeks 0 days Abdominal circumference: 33.6 cm, 37 weeks 4 days Femur length: 7.09 cm, 36 weeks 2 days Estimated gestational age from initial scan: 37 weeks 2 days. Composite gestational age from present scan: 38 weeks 4 days Estimated weight and percentile: 3329 g, 75th percentile Measurement variability in biometric dating: +/- 10 days from 12-20 weeks gestation, +/- 2 weeks from 20-30 weeks gestation, +/- 3 weeks at 30 weeks gestation or more. Other: Incidental placental deutsch. Normal appearance of the chest, stomach, kidneys and urinary bladder IMPRESSION: Single living intrauterine fetus in vertex presentation. Normal AMY Reviewed by: Nelson Gallagher MD on 08/02/2020 8:22 PM PDT Approved by: Nelson Gallagher MD on 08/02/2020 8:22 PM PDT Station ID: [id number]
== END 2020-08-02 15:14 | disposition home or self-care (01) ==
LOC: DI 15:13
PROVIDERS: ATTEND Obstetrics & Gynecology
DX: O09.90 Supervision of high risk pregnancy, unspecified, unspecified trimester (principal); O36.60X0 Maternal care for excessive fetal growth, unspecified trimester, not applicable or unspecified; Z3A.00 Weeks of gestation of pregnancy not specified

== ENCOUNTER 2020-08-12 10:59 | Outpatient (CLI) | payer MEDICAID ==
[2020-08-12 11:37] LABS: BASOPHILS % (AUTO) 0.1 %; EOSINOPHILS % (AUTO) 0.3 %; HCT - HEMATOCRIT 32.6 % (37.0-47.0); HGB - HEMOGLOBIN 10.7 g/dL (12.0-16.0); LYMPHOCYTES # (AUTO) 1.6 10^3/uL (1.5-3.5); MEAN CORPUSCULAR HEMOGLOBIN 26.6 pg (27.0-31.0); MEAN CORPUSCULAR HGB CONC 32.8 g/dL (32.0-36.0); MEAN CORPUSCULAR VOLUME 81.1 fL (81.0-99.0); MEAN PLATELET VOLUME 10.2 fL (7.9-10.8); MONOCYTES # (AUTO) 0.5 10^3/uL (0.0-1.0); MONOCYTES % (AUTO) 7.3 %; NEUTROPHILS # (AUTO) 4.7 10^3/uL (1.5-6.6); NEUTROPHILS % (AUTO) 69.2 %; PLT - PLATELET COUNT 253 10^3/uL (130-450); RED BLOOD COUNT 4.02 10^6/uL (4.20-5.40); RED CELL DISTRIBUTION WIDTH 15.2 % (12.0-15.0); WHITE BLOOD COUNT 6.7 x10^3/uL (4.8-10.8)
[2020-08-12 11:55] LABS: ALBUMIN 2.7 g/dL (3.2-5.5); ALBUMIN/GLOBULIN RATIO 0.9 (1.0-2.2); BILIRUBIN,TOTAL 0.4 mg/dL (0.2-1.0); CALCIUM 9.3 mg/dL (8.5-10.3); CREATININE 0.4 mg/dL (0.4-1.0); POTASSIUM 3.8 mmol/L (3.5-5.0); TOTAL PROTEIN 5.8 g/dL (6.7-8.2)
== END 2020-08-12 11:00 | disposition home or self-care (01) ==
LOC: LAB 10:59
PROVIDERS: ATTEND Obstetrics & Gynecology
DX: Z01.812 Encounter for preprocedural laboratory examination (principal); O34.211 Maternal care for low transverse scar from previous cesarean delivery; Z87.59 Personal history of other complications of pregnancy, childbirth and the puerperium; Z20.822 Contact with and (suspected) exposure to COVID-19
CPT/HCPCS: 36415; 80053; 85025; 86850; 86900; 86901

== ENCOUNTER 2020-08-14 05:22 | Inpatient (IN) | payer MEDICAID ==
[2020-08-14] MEDS ORDERED: CITRIC ACID/SODIUM CITRATE 15 ML UDC PO ONE (05:46)
[2020-08-14] MEDS ORDERED: ceFAZolin 3 GM in SODIUM CHLORIDE 0.9% 100ML 100 ML IV ONE (05:46)
[2020-08-14] MEDS ORDERED: LACTATED RINGERS 500 ML IV ONE (05:46)
[2020-08-14] MEDS ORDERED: LIDOCAINE MPF 2%-EPI 1:200000 20 ML VIAL ONE (07:06)
[2020-08-14] MEDS ORDERED: BUPIVACAINE 0.5% PF 30 ML VIAL ONE (07:06)
[2020-08-14] MEDS ORDERED: fentaNYL 100 MCG/2 ML VIAL ONE (07:08)
[2020-08-14] MEDS ORDERED: MORPHINE PF 5 MG/10 ML VIAL ONE (07:08)
[2020-08-14] MEDS ORDERED: OXYTOCIN 10 UNIT/ML VIAL ONE (07:09)
[2020-08-14] MEDS ORDERED: PHENYLEPHRINE 10 MG/ML VIAL ONE (07:11)
--- NOTE | 2020-08-14 07:23 | ANESTHESIA ---
Pre-Anesthesia VS, & Labs - Diagnosis previous c/s, desires sterilization - Procedure repeat c/s with bilateral salpingectomies Vital Signs: Temp Pulse Resp BP Pulse Ox 36.9 C 106 H 20 122/80 98 08/14/20 05:50 08/14/20 05:50 08/14/20 05:50 08/14/20 05:50 08/14/20 05:50 Height: 5 ft Weight (kg): 111.13 kg Body Mass Index: 47.8 BMI Classification: Morbidly Obese - NPO >8 hours - Is Patient ?: Yes Home Medications and Allergies Ethinyl Estradiol/Drospirenone [Kerline 28 Tablet] 1 tab PO DAILY 06/26/16 PNV, iron, baby asa Allergies/Adverse Reactions: Allergies Allergy/AdvReac Type Severity Reaction Status Date / Time No Known Drug Allergies Allergy Verified 07/26/18 09:19 Anes History & Medical History - Anesthetic History Anesthesia Complications: reports: No previous complications - Medical History Cardiovascular: reports: None Pulmonary: reports: None Gastrointestinal: reports: None Urinary: reports: None Neuro: reports: None Musculoskeletal: reports: None Endocrine/Autoimmune: reports: None Blood Disorders: reports: None Skin: reports: None Smoking Status: Never smoker Psychosocial: reports: No issues indicated History of Cancer?: No - Surgical History Eyes Ears Nose Throat (EENT): reports: Myringotomy (tubes), Tonsil/Adenoidectomy Gynecologic: reports: section Exam General: Alert, Oriented x3, Cooperative, No acute distress Dental: WNL Mouth Openin Fingerbreadth Neck Mobility: Normal Mallampati classification: IV Mental/Cognitive Status: Alert/Oriented X3, Normal for patient Plan Anesthesia Type: Spinal Consent for Procedure(s) Verified and Reviewed: Yes Code Status: Attempt Resuscitation ASA classification: 2-Mild systemic disease Is this case an emergency?: No
[2020-08-14] MEDS ORDERED: fentaNYL 100 MCG/2 ML VIAL IVP PRN (07:24)
[2020-08-14] MEDS ORDERED: NALOXONE 0.4 MG/ML VIAL IVP PRN ×2 (07:24→09:23)
[2020-08-14] MEDS ORDERED: METOCLOPRAMIDE 10 MG/2 ML VIAL IVP PRN (07:24)
[2020-08-14] MEDS ORDERED: HYDROmorphone 0.5 MG/0.5 ML SYRINGE IVP PRN (07:24)
[2020-08-14] MEDS ORDERED: ePHEDrine 50 MG/ML VIAL IVP PRN (07:24)
[2020-08-14] MEDS ORDERED: MORPHINE 2 MG/ML CARPUJECT IVP PRN (07:24)
[2020-08-14] MEDS ORDERED: ONDANSETRON 4 MG/2 ML VIAL IVP PRN ×2 (07:24→09:23)
[2020-08-14] MEDS ORDERED: ATROPINE ABBOJECT 1 MG/10 ML SYRINGE IVP PRN (07:24)
[2020-08-14] MEDS ORDERED: CARBOPROST TROMETHAMINE 250 MCG/ML AMP IM ONE (07:42)
[2020-08-14] MEDS ORDERED: miSOPROStoL 200 MCG TABLET ONE (07:42)
[2020-08-14] MEDS ORDERED: METHYLERGONOVINE 0.2 MG/ML VIAL ONE (07:42)
[2020-08-14] MEDS ORDERED: LACTATED RINGERS 1,000 ML IV SCH ×2 (08:00→10:00)
[2020-08-14] MEDS ORDERED: MORPHINE PF 5 MG/10 ML VIAL IT ONE (08:08)
[2020-08-14] MEDS ORDERED: fentaNYL 100 MCG/2 ML VIAL IT ONE (08:08)
[2020-08-14] MEDS ORDERED: LIDOCAINE MPF 2%-EPI 1:200000 20 ML VIAL SUBQ ONE (08:28)
[2020-08-14] MEDS ORDERED: BUPIVACAINE 0.5% PF 30 ML VIAL SUBQ ONE (08:28)
[2020-08-14] MEDS ORDERED: diphenhydrAMINE INJ 50 MG/ML VIAL ONE (08:56)
[2020-08-14] MEDS ORDERED: NALBUPHINE 10 MG/ML AMP IVP PRN (09:23)
[2020-08-14] MEDS ORDERED: diphenhydrAMINE INJ 50 MG/ML VIAL IVP PRN (09:23)
[2020-08-14] MEDS ORDERED: KETOROLAC 30 MG/ML VIAL ONE (09:26)
[2020-08-14] MEDS ORDERED: ONDANSETRON 4 MG/2 ML VIAL ONE (09:32)
[2020-08-14] MEDS ORDERED: LACTATED RINGERS 1,000 ML IV ONE (09:38)
[2020-08-14] MEDS ORDERED: SODIUM CHLORIDE FLUSH 0.9% 10 ML SYRINGE IVP PRN (09:52)
[2020-08-14] MEDS ORDERED: diphenhydrAMINE 25 MG CAPSULE PO PRN (09:52)
--- NOTE | 2020-08-14 10:02 | OPERATIVE REPORT ---
Operative Report - General Admit Date: 08/14/20 Procedure Date: 08/14/20 Planned Procedure: RLTC/S, SALPINGECTOMY Pre-Op Diagnosis: 39 WEEKS, UNDESIRED FERTILITY Procedure Performed: SAME Post Op Diagnosis: GAME - Procedure Note Primary Surgeon: Segundo Albarran MD Secondary Surgeon: Franca CABAN Anesthesia Provider: Des Caballeor CRNA Anesthesia Technique: Spinal Pathology: Placenta Estimated Blood Loss (mL): 500
[2020-08-14] MEDS: ACETAMINOPHEN 500 MG TABLET PO SCH ×2 (10:47→19:45)
[2020-08-14] MEDS: KETOROLAC 30 MG/ML VIAL IVP SCH ×2 (10:47→17:08)
[2020-08-14] MEDS: SODIUM CHLORIDE FLUSH 0.9% 10 ML SYRINGE IVP SCH ×2 (10:48→15:06)
--- NOTE | 2020-08-14 10:56 | OPERATIVE REPORT ---
DATE OF SERVICE: 08/14/2020 Physician: Segundo Albarran MD PREOPERATIVE DIAGNOSES 1. 39 weeks. 2. Previous section x3. 3. Undesired infertility. 4. Suspected macrosomia. POSTOPERATIVE DIAGNOSES 1. 39 weeks. 2. Previous section x3. 3. Undesired infertility. 4. Suspected macrosomia. PROCEDURE: Repeat low transverse section with bilateral salpingectomy. SURGEON: Segundo Albarran MD FINDINGS: Live male , right occiput anterior, clear amniotic fluid, Apgars 8 and 9, polyhydramnios. PROCEDURE: Following adequate spinal anesthesia, patient placed in supine position with a roll under right hip. The abdomen was taped up with tape going over the shoulder. At this point, she was prepped and draped in the usual fashion. A timeout was performed, at which concerns were addressed. Because of her increased BMI, she received 3 grams of Ancef preoperatively. Following ensuring good anesthesia, a Pfannenstiel incision was carried down through the subcutaneous tissue to the fascia. The fascia was incised transversely, then using both blunt and sharp dissection was dissected free from the rectus abdominis. The peritoneum was entered high. Care was taken to avoid any injury to the bowel or bladder. The incision was carried superiorly and inferiorly. The rectus had to be split with Rodriguez scissors secondary to the fact it had been reapproximated at the time of her previous section. The incision was extended bimanually, and then a bladder retractor was placed, and a bladder flap was developed using both Metzenbaum scissors, as well as blunt dissection. A low transverse uterine incision was carried through the lower uterine segment. The lower uterine segment was noted to be very thin and attenuated. The membranes were then ruptured, and clear amniotic fluid was encountered. The was noted to be in the right occiput anterior position with the hand interposed. The head of the was lifted out of the pelvis and then following fundal pressure was delivered through the incision without difficulty. The cord was allowed to pulsate for roughly 30 seconds. There was minimal blood loss from the incision noted at this time. The cord was doubly- clamped, divided, and the infant was handed to the nursery team that was standing by. Cord blood samples were obtained. At this point, the placenta was manually delivered. The interior portion of the uterus was cleansed with a dry lap. The incision was then closed using a running locking suture of #0 Vicryl with an imbricating layer of #0 Vicryl. This was reinforced in roughly two places with 2-0 Vicryl for hemostasis. At this point, a moist lap was placed over the incision. The uterus was exteriorized. The right fallopian tube was grasped at its fimbriated end utilizing the LigaSure. It was cauterized and transected all the way to the cornu. The contralateral side was started on the uterine side and then traversed the mesosalpinx all the way to the fimbriated end. There was evidence of good hemostasis noted. The estimated blood loss was ascertained and felt to be roughly 500 mL. The cul-de-sac was irrigated, and then the uterus was delivered back in the abdominal cavity. Gutters were likewise irrigated. There was some small oozing noted from the incision on the left-hand side. Again, 2-0 Vicryl was used for this, and the incision was inspected and noted to be dry. The peritoneum was closed utilizing 2-0 Vicryl, and then the rectus had three sutures to reapproximate it. The fascia was closed utilizing a looped 0-PDS, and the subcutaneous tissue was closed utilizing 2-0 Vicryl in a running suture. The incision itself was closed using 4-0 Monocryl subcuticular. The wound had Steri-Strips placed following application of Mastisol. At this point, the area was clear of any clot, and then Mastisol was sprayed, and a Prevena wound VAC was placed with evidence of a good seal. The uterus was then expressed and minimal blood was noted at this time. The patient tolerated the procedure well and was taken to Recovery in stable condition. The sponge and needle counts were correct. Thruout the case Francamely Naidu was instrumental to the successful out come. TD: 08/14/2020 10:54 trinity JIM
--- NOTE | 2020-08-14 10:59 | ANESTHESIA POST OP EVALUATION ---
Anesthesia Post Eval - Post Anesthesia Eval Vitals: Last Vital Signs Temp 36.7 C 08/14/20 10:31 Pulse 72 08/14/20 10:31 Resp 15 08/14/20 10:31 BP 118/68 08/14/20 10:31 Pulse Ox 98 08/14/20 10:31 CV Function Including HR & BP: Stable Pain Control: Satisfactory Nausea & Vomiting: Negative Mental Status: Baseline Respiratory Status: Airway Patent Hydration Status: Satisfactory Anesthesia Complications: None
[2020-08-14] MEDS: oxyCODONE 5 MG TABLET PO PRN ×2 (18:30→22:14)
[2020-08-14] MEDS: DOCUSATE SODIUM 100 MG CAPSULE PO SCH (22:13)
[2020-08-14] MEDS ORDERED: IBUPROFEN 600 MG TABLET PO SCH (23:45)
[2020-08-15] MEDS: KETOROLAC 30 MG/ML VIAL IVP SCH (01:42)
[2020-08-15] MEDS: oxyCODONE 5 MG TABLET PO PRN ×6 (02:48→21:44)
[2020-08-15] MEDS: ACETAMINOPHEN 500 MG TABLET PO SCH ×3 (03:57→19:55)
[2020-08-15] MEDS: IBUPROFEN 800 MG TABLET PO PRN ×3 (05:36→21:42)
[2020-08-15 06:12] LABS: BASOPHILS % (AUTO) 0.3 %; EOSINOPHILS # (AUTO) 0.1 10^3/uL (0.0-0.7); HCT - HEMATOCRIT 30.5 % (37.0-47.0); HGB - HEMOGLOBIN 9.6 g/dL (12.0-16.0); LYMPHOCYTES # (AUTO) 1.6 10^3/uL (1.5-3.5); LYMPHOCYTES % (AUTO) 22.8 %; MEAN CORPUSCULAR HEMOGLOBIN 25.9 pg (27.0-31.0); MEAN CORPUSCULAR HGB CONC 31.5 g/dL (32.0-36.0); MEAN CORPUSCULAR VOLUME 82.4 fL (81.0-99.0); MEAN PLATELET VOLUME 10.7 fL (7.9-10.8); MONOCYTES # (AUTO) 0.8 10^3/uL (0.0-1.0); MONOCYTES % (AUTO) 11.5 %; NEUTROPHILS # (AUTO) 4.6 10^3/uL (1.5-6.6); NEUTROPHILS % (AUTO) 64.1 %; PLT - PLATELET COUNT 209 10^3/uL (130-450); RED CELL DISTRIBUTION WIDTH 15.2 % (12.0-15.0); WHITE BLOOD COUNT 7.1 x10^3/uL (4.8-10.8)
--- NOTE | 2020-08-15 08:09 | PROVIDER PROGRESS NOTE ---
Subjective - General Admit Date: 08/14/20 Procedure Date: 08/14/20 Post Op Days: 1 Procedure Performed: RLTC/S with BS - Review of Systems Wound/Incisions: positive: Healing well, Dressing dry and intact (blistors at the rigth margin of the wound vac) General: positive: No symptoms (5/10 pain, passing flatus, baby in NICU at [place]. anticipate discharge Sat) Objective - Patient Data Reviewed Vital Signs: Yes Vital Signs: Vital Signs x48h Temp Pulse Resp BP Pulse Ox 08/15/20 05:35 36.8 C 83 16 105/63 96 08/15/20 02:30 36.4 C L 85 16 101/60 97 08/15/20 01:20 16 08/15/20 00:35 16 Weight: Weight 08/13/20 08/14/20 08/15/20 23:59 23:59 23:59 Weight (kg) 111.13 kg Intake & Output: Intake and Output Totals x24h 08/13/20 08/14/20 08/15/20 23:59 23:59 23:59 Intake Total 200 Output Total 555 565 Balance -769 -365 - Lab Results Lab Results: 08/15/20 05:32 Other Lab Results: Lab Results x24hrs 08/15/20 Range/Units 05:32 WBC 7.1 (4.8-10.8) x10^3/uL RBC 3.70 L (4.20-5.40) 10^6/uL Hgb 9.6 L (12.0-16.0) g/dL Hct 30.5 L (37.0-47.0) % MCV 82.4 (81.0-99.0) fL MCH 25.9 L (27.0-31.0) pg MCHC 31.5 L (32.0-36.0) g/dL RDW 15.2 H (12.0-15.0) % Plt Count 209 (130-450) 10^3/uL MPV 10.7 (7.9-10.8) fL Neut # (Auto) 4.6 (1.5-6.6) 10^3/uL Lymph # (Auto) 1.6 (1.5-3.5) 10^3/uL [place] # (Auto) 0.8 (0.0-1.0) 10^3/uL Eos # (Auto) 0.1 (0.0-0.7) 10^3/uL Baso # (Auto) 0.0 (0.0-0.1) 10^3/uL Absolute Nucleated RBC 0.00 x10^3/uL Nucleated RBC % 0.0 /100WBC - Current Medications Current Medications: Current Medications Generic Name Dose Route Start Last Admin Trade Name Freq PRN Reason Stop Dose Admin Acetaminophen 1,000 mg 08/14/20 10:00 08/15/20 03:57 Acetaminophen 500 Mg Tablet PO 1,000 mg Q8H JOSE JUAN Administration Docusate Sodium 100 mg 08/14/20 21:00 08/14/20 22:13 Docusate Sodium 100 Mg Capsule PO 100 mg BID JOSE JUAN Administration Ibuprofen 600 mg 08/14/20 23:45 08/14/20 23:42 Ibuprofen 600 Mg Tablet PO 08/15/20 23:44 600 mg ONCE JOSE JUAN Administration Ibuprofen 800 mg 08/15/20 05:30 08/15/20 05:36 Ibuprofen 800 Mg Tablet PO 800 mg Q8HR PRN Administration PAIN Nalbuphine HCl 5 mg 08/14/20 09:23 08/14/20 15:04 Nalbuphine 10 Mg/Ml Amp IVP 08/15/20 09:24 5 mg Q4H PRN Administration ITCHING Oxycodone HCl 5 mg 08/14/20 16:48 08/15/20 06:46 Oxycodone 5 Mg Tablet PO 5 mg Q4HR PRN Administration PAIN Sodium Chloride 10 ml 08/14/20 17:00 08/14/20 15:06 Sodium Chloride Flush 0.9% 10 Ml Syringe IVP 10 ml 0100,0900,1700 JOSE JUAN Administration - Physical Exam Wound/Incisions: positive: Dressing dry and intact (blisters at the rigth side of the wound vac.) General Appearance: positive: No acute distress, Alert Respiratory: positive: Chest non-tender, No respiratory distress, Breath sounds nml Cardiovascular: positive: Regular rate & rhythm, No murmur, No gallop Abdomen: positive: Tenderness (at fundis), Mass (U-1) Back: negative: CVA tenderness (R), CVA tenderness (L) Extremities: negative: Calf tenderness, Lila's sign/cords Neurologic/Psychiatric: positive: Oriented x3 Impression/Plan - Problem List Problem List: POD # 1 progressing nasal itching from Spinal Morphine Start claritin
[2020-08-15] MEDS: SIMETHICONE CHEW 80 MG TABLET PO SCH ×2 (08:54→12:10)
[2020-08-15] MEDS: DOCUSATE SODIUM 100 MG CAPSULE PO SCH ×2 (08:54→19:55)
[2020-08-15] MEDS ORDERED: LORATADINE 10 MG TABLET PO SCH (09:00)
--- NOTE | 2020-08-15 13:53 | PROVIDER PROGRESS NOTE ---
Subjective - Prog Note Date Prog Note Date: 08/15/20 Prog Note Time: 13:50 - Subjective Subjective: Pt C/O pain at the right side of her incision. worse with movement. Objective - Vital Signs/Intake & Output Reviewed Vital Signs: Yes Vital Signs: Vital Signs x48h Temp Pulse Resp BP Pulse Ox 08/15/20 10:30 36.7 C 85 17 99/60 98 08/15/20 07:15 36.4 C L 91 20 108/61 97 Intake & Output: Intake & Output 08/12/20 08/13/20 08/14/20 08/15/20 23:59 23:59 23:59 23:59 Intake Total 200 Output Total 555 565 Balance -555 -365 - Objective Abdomen: positive: Tenderness (At the right side of the dressing. bliaters under the margins of the dressing.) - Lab Results Fish Bones: 08/15/20 05:32 Other Labs: Lab Results x24hrs 08/15/20 Range/Units 05:32 WBC 7.1 (4.8-10.8) x10^3/uL RBC 3.70 L (4.20-5.40) 10^6/uL Hgb 9.6 L (12.0-16.0) g/dL Hct 30.5 L (37.0-47.0) % MCV 82.4 (81.0-99.0) fL MCH 25.9 L (27.0-31.0) pg MCHC 31.5 L (32.0-36.0) g/dL RDW 15.2 H (12.0-15.0) % Plt Count 209 (130-450) 10^3/uL MPV 10.7 (7.9-10.8) fL Neut # (Auto) 4.6 (1.5-6.6) 10^3/uL Lymph # (Auto) 1.6 (1.5-3.5) 10^3/uL [place] # (Auto) 0.8 (0.0-1.0) 10^3/uL Eos # (Auto) 0.1 (0.0-0.7) 10^3/uL Baso # (Auto) 0.0 (0.0-0.1) 10^3/uL Absolute Nucleated RBC 0.00 x10^3/uL Nucleated RBC % 0.0 /100WBC Assessment/Plan - Problem List (1) section wound complication Impression: skin seperation from the dressing. Give 10 of oxycodone the remove wound vac.
[2020-08-15] MEDS ORDERED: BACITRACIN ZINC OINT 1 PACKET TOP SCH (14:00)
[2020-08-16] MEDS: oxyCODONE 5 MG TABLET PO PRN ×3 (01:37→10:11)
[2020-08-16] MEDS: ACETAMINOPHEN 500 MG TABLET PO SCH (04:16)
[2020-08-16] MEDS: IBUPROFEN 800 MG TABLET PO PRN (05:51)
[2020-08-16 08:26] VITALS: BP 125/78
--- NOTE | 2020-08-16 08:28 | PROVIDER PROGRESS NOTE ---
Subjective - General Admit Date: 08/14/20 Procedure Date: 08/14/20 Post Op Days: 2 Procedure Performed: RLTC/S with BS - Review of Systems Wound/Incisions: positive: Healing well (healing well without erythema) General: positive: No symptoms (4/10 pain, Pt states that herpain control is adiquit. passing flatus, baby in NICU at [place]. anticipate discharge Sat) Gastrointestinal: positive: Flatus. negative: Nausea, Vomiting Objective - Patient Data Reviewed Vital Signs: Yes Vital Signs: Vital Signs x48h Temp Pulse Resp BP Pulse Ox 08/16/20 08:25 36.5 C 101 H 16 125/78 99 08/16/20 01:35 36.7 C 97 16 104/66 98 Weight: Weight 08/14/20 08/15/20 08/16/20 23:59 23:59 23:59 Weight (kg) 111.13 kg Intake & Output: Intake and Output Totals x24h 08/14/20 08/15/20 08/16/20 23:59 23:59 23:59 Intake Total 200 Output Total 555 565 Balance -555 -365 - Lab Results Lab Results: 08/15/20 05:32 - Current Medications Current Medications: Current Medications Generic Name Dose Route Start Last Admin Trade Name Freq PRN Reason Stop Dose Admin Acetaminophen 1,000 mg 08/14/20 10:00 08/16/20 04:16 Acetaminophen 500 Mg Tablet PO 1,000 mg Q8H JOSE JUAN Administration Bacitracin 1 packet 08/15/20 14:00 08/15/20 18:16 Bacitracin Zinc Oint 1 Packet TOP 1 packet BID JOSE JUAN Administration Docusate Sodium 100 mg 08/14/20 21:00 08/15/20 19:55 Docusate Sodium 100 Mg Capsule PO 100 mg BID JOSE JUAN Administration Ibuprofen 800 mg 08/15/20 05:30 08/16/20 05:51 Ibuprofen 800 Mg Tablet PO 800 mg Q8HR PRN Administration PAIN Loratadine 10 mg 08/15/20 09:00 08/15/20 12:10 Loratadine 10 Mg Tablet PO 10 mg DAILY JOSE JUAN Administration Oxycodone HCl 10 mg 08/15/20 13:54 08/16/20 05:51 Oxycodone 5 Mg Tablet PO 10 mg Q4HR PRN Administration PAIN Simethicone 80 mg 08/14/20 14:00 08/15/20 12:10 Simethicone Chew 80 Mg Tablet PO 80 mg TID JOSE JUAN Administration Sodium Chloride 10 ml 08/14/20 17:00 08/14/20 15:06 Sodium Chloride Flush 0.9% 10 Ml Syringe IVP 10 ml 0100,0900,1700 JOSE JUAN Administration - Physical Exam Wound/Incisions: positive: Healing well General Appearance: positive: No acute distress (moves slowley), Alert Respiratory: positive: Chest non-tender, No respiratory distress, Breath sounds nml. negative: Wheezes, Rales Cardiovascular: positive: Regular rate & rhythm, No murmur, No gallop Abdomen: positive: Nml bowel sounds, Mass (U-2) Back: negative: CVA tenderness (R), CVA tenderness (L) Extremities: negative: Calf tenderness, Lila's sign/cords Impression/Plan - Problem List Problem List: POD # 2 progressing. baby in NICU. mother wants to be with her baby. Wound pain probably from nerve entrapment. Anemia Plan Send home RTC 26 August Discharge meds: Oxycodone Motrin 800 Colace 100 mg
--- NOTE | 2020-08-16 08:45 | Discharge Plan ---
Discharge Plan Problem Reviewed?: Yes Disposition: Home, Self Care Condition: Good Diet: Regular Activity Restrictions: pelvic rest 6 weeks Shower Restrictions: No (cover wound) Driving Restrictions: Yes (not while taking narcotics) Weight Bearing: Full Weight No Smoking: If you smoke, Please STOP! Call for help. Follow-up with: Bindu Kerr PA [Primary Care Provider] -
--- NOTE | 2020-08-16 09:10 | DISCHARGE SUMMARY ---
Physician: Segundo Albarran MD DATE OF ADMISSION: 08/14/2020 DATE OF DISCHARGE: 08/16/2020 ADMITTING DIAGNOSES 1. 40-week gestation. 2. Previous section. 3. History of preeclampsia. 4. Undesired fertility. DISCHARGE DIAGNOSES 1. 40-week gestation. 2. Previous section. 3. History of preeclampsia. 4. Undesired fertility. PROCEDURE: Repeat low transverse section. PRESENTING HISTORY: Patient is a 29-year-old G3, P2 female whose EDC was determined to be 08/21/2020 by 6-week 2-day ultrasound. She had 2 previous sections, the first was performed for preeclampsia. She desires no further children at this time. Her course was unremarkable with the exception of some contractions. She was placed on a baby aspirin daily to decrease the risk of recurrence of her preeclampsia. LABORATORIES: Preoperatively her CBC showed a hemoglobin of 10.7, hematocrit 32.6, platelets were 253, white count was 6.7; postoperatively her white count was 7.1, hemoglobin was 9.6, hematocrit was 30.5, and platelets were 209. HOSPITAL COURSE: Patient was admitted, at which time she was taken back for repeat low transverse section under spinal anesthesia. The procedure was unremarkable. Her estimated blood loss during the procedure was roughly 500 mL. At time of delivery, there was clear amniotic fluid. The infant was noted to be right occiput anterior with the hand down around the head. The was noted to have Apgars of 8 and 9. At time of section, her tubes were removed after confirming that this was her wish. Postoperatively, she has done reasonably well with the exception of some pain at the right side of the incision. At one point, this was thought to be possibly a blister being caused by the wound VAC, and the wound VAC was removed. The pain was markedly decreased; however, no blister was seen. She is being discharged to home with instructions to follow up on the . Her is currently at the Intensive care at [place], and she desires to be with her infant. DISCHARGE MEDICATIONS 1. Oxycodone. 2. Motrin. 3. Colace. DISCHARGE INSTRUCTIONS: She is instructed to follow up in the clinic on the , as I will be on holiday. She is told should she develop any signs or symptoms of mastitis to contact the clinic immediately or signs of infection or heavy bleeding. TD: 08/16/2020 09:09 trinity JIM
[2020-08-16] MEDS: DOCUSATE SODIUM 100 MG CAPSULE PO SCH (10:11)
== END 2020-08-16 10:45 | disposition home or self-care (01) | DRG 785 ==
LOC: FBP 05:22
PROVIDERS: ADMIT Obstetrics & Gynecology; ATTEND Obstetrics & Gynecology
PROC: 0UT70ZZ Resection of Bilateral Fallopian Tubes, Open Approach (ICD-10-PCS; 2020-08-14)
PROC: 10D00Z1 Extraction of Products of Conception, Low, Open Approach (ICD-10-PCS; principal; 2020-08-14 07:30)
DX: O34.211 Maternal care for low transverse scar from previous cesarean delivery (principal); Z30.2 Encounter for sterilization; Z37.0 Single live birth; O40.3XX0 Polyhydramnios, third trimester, not applicable or unspecified; Z3A.39 39 weeks gestation of pregnancy; O99.213 Obesity complicating pregnancy, third trimester; E66.01 Morbid (severe) obesity due to excess calories; O90.81 Anemia of the puerperium; D64.9 Anemia, unspecified; O90.89 Other complications of the puerperium, not elsewhere classified; G89.18 Other acute postprocedural pain; Z87.59 Personal history of other complications of pregnancy, childbirth and the puerperium; Z79.82 Long term (current) use of aspirin
CPT/HCPCS: 36415; 85025; A9270; J1200; J2274; J2300; J7120

== ENCOUNTER 2020-09-05 17:42 | Emergency (ER) | payer MEDICAID ==
[2020-09-05 17:53] VITALS: BP 130/77
[2020-09-05 18:59] LABS: BASOPHILS % (AUTO) 0.5 %; EOSINOPHILS % (AUTO) 0.7 %; HCT - HEMATOCRIT 36.8 % (37.0-47.0); HGB - HEMOGLOBIN 11.7 g/dL (12.0-16.0); LYMPHOCYTES # (AUTO) 2.5 10^3/uL (1.5-3.5); LYMPHOCYTES % (AUTO) 44.1 %; MEAN CORPUSCULAR HEMOGLOBIN 26.2 pg (27.0-31.0); MEAN CORPUSCULAR HGB CONC 31.8 g/dL (32.0-36.0); MEAN CORPUSCULAR VOLUME 82.3 fL (81.0-99.0); MEAN PLATELET VOLUME 9.4 fL (7.9-10.8); MONOCYTES # (AUTO) 0.4 10^3/uL (0.0-1.0); NEUTROPHILS # (AUTO) 2.7 10^3/uL (1.5-6.6); NEUTROPHILS % (AUTO) 47.5 %; PLT - PLATELET COUNT 424 10^3/uL (130-450); RED BLOOD COUNT 4.47 10^6/uL (4.20-5.40); RED CELL DISTRIBUTION WIDTH 15.9 % (12.0-15.0); WHITE BLOOD COUNT 5.6 x10^3/uL (4.8-10.8)
[2020-09-05 19:07] LABS: ALBUMIN 4.1 g/dL (3.2-5.5); ALBUMIN/GLOBULIN RATIO 1.5 (1.0-2.2); BILIRUBIN,TOTAL 0.5 mg/dL (0.2-1.0); CALCIUM 9.3 mg/dL (8.5-10.3); CREATININE 0.5 mg/dL (0.4-1.0); POTASSIUM 3.6 mmol/L (3.5-5.0); TOTAL PROTEIN 6.9 g/dL (6.7-8.2)
--- NOTE | 2020-09-05 19:16 | ED Physician Documentation ---
History of Present Illness - Stated complaint Stated Complaint: POST OP COMPLICATIONS - Chief complaint Chief Complaint: Laceration - Additonal information Additional information: 29-year-old female presents the emergency department for evaluation of concerned that she may have an infection in her incision site. She underwent C- section on 14 August. She is breast-feeding her who is doing well. She has had no fevers cough congestion lochia or abdominal pain. However she noticed a small swelling on the incision which made her concerned that she could have an infection. Review of Systems Constitutional: reports: Reviewed and negative Ears: reports: Reviewed and negative Nose: reports: Reviewed and negative Throat: reports: Reviewed and negative Cardiac: reports: Reviewed and negative Respiratory: reports: Reviewed and negative GI: reports: Reviewed and negative : reports: Reviewed and negative Skin: reports: Other (Low transverse incision.) PD PAST MEDICAL HISTORY - Past Medical History Cardiovascular: None Respiratory: None Neuro: None Endocrine/Autoimmune: None GI: None PACKAGING ENGINEER: None : None HEENT: None Psych: None Musculoskeletal: None Derm: None - Past Surgical History Past Surgical History: Yes /PACKAGING ENGINEER: section HEENT: Myringotomy (tubes), Tonsil/Adenoidectomy - Present Medications Home Medications: Ambulatory Orders Medication Instructions Recorded Confirmed Ethinyl Estradiol/Drospirenone 1 tab PO DAILY 06/26/16 08/17/16 [Kerline 28 Tablet] Amoxicillin 1,000 mg PO TID #30 capsule 08/29/16 Amox/Clav 875/125 [Augmentin] 1 each PO Q12H #20 tablet 07/14/18 Azithromycin [Zithromax] 250 mg PO DAILY #6 tablet 07/26/18 cephALEXin [Keflex] 500 mg PO Q6H #28 cap 07/15/20 Acetaminophen [Acetaminophen Extra 1,000 mg PO Q8H PRN #60 tablet 08/26/20 Strength] Docusate Sodium 100Mg Capsule 100 - 200 mg PO BID PRN #60 cap 08/26/20 [Colace 100Mg Capsule] Ibuprofen [Motrin] 600 mg PO Q6H PRN #60 tab 08/26/20 - Allergies Allergies/Adverse Reactions: Allergies Allergy/AdvReac Type Severity Reaction Status Date / Time No Known Drug Allergies Allergy Verified 09/05/20 17:48 - Social History Does the pt smoke?: No Smoking Status: Never smoker Does the pt drink ETOH?: No Does the pt have substance abuse?: No - Immunizations Immunizations are current?: Yes - POLST Patient has POLST: No PD ED PE EXPANDED - General General: Alert, No acute distress - Abdomen Abdomen: Normal Bowel sounds, Surgical scars (Low transverse incision intact withotu fluid or drainage. just to the right of the midline incision is a smal lfirm scar 0.2cm in size that has formed) Results - Vitals Vitals: Vital Signs - 24 hr 09/05/20 17:49 Temperature 36.5 C Heart Rate 77 Respiratory 16 Rate Blood Pressure 130/77 O2 Saturation 99 Oxygen O2 Source Room air - Labs Labs: Laboratory Tests 09/05/20 09/05/20 09/05/20 18:48 18:48 18:48 WBC 5.6 RBC 4.47 Hgb 11.7 L Hct 36.8 L MCV 82.3 MCH 26.2 L MCHC 31.8 L RDW 15.9 H Plt Count 424 MPV 9.4 Neut # (Auto) 2.7 Lymph # (Auto) 2.5 [place] # (Auto) 0.4 Eos # (Auto) 0.0 Baso # (Auto) 0.0 Absolute Nucleated RBC 0.00 Nucleated RBC % 0.0 Sodium 137 Potassium 3.6 Chloride 101 Carbon Dioxide 29 Anion Gap 7.0 BUN 17 Creatinine 0.5 Estimated GFR (MDRD) 147 Glucose 85 Lactic Acid < 0.3 L Calcium 9.3 Total Bilirubin 0.5 AST 17 ALT 20 Alkaline Phosphatase 122 H Total Protein 6.9 Albumin 4.1 Globulin 2.8 Albumin/Globulin Ratio 1.5 Lipase 25 PD MEDICAL DECISION MAKING - ED course Complexity details: reviewed results, re-evaluated patient ED course: 29-year-old female presents the emergency department for evaluation of a scar that is formed on her incision that she was concerned may be an infection. It is 0.2 cm and firm without fluid collection or surrounding erythema. The incision itself is well approximated without drainage and no significant tenderness. No findings on exam consistent with infection. Screening labs show no leukocytosis. No fever here and vital signs within normal limits. Patient advised to place antibiotic ointment over her incision and continue close follow-up with the doctor Avis as already scheduled. Departure - Departure Disposition: 01 Home, Self Care Clinical Impression: Visit for wound check Condition: Stable Record reviewed to determine appropriate education?: Yes Comments: The incision looks good. There is no infection. You do have a small scar that is firm that has begun to develop. I do recommend that you place a warm antibiotic ointment over this 3 times a day. If at any point you have surrounding redness pain or fevers please return to the ER for second look. Do not miss the follow-up appointment with your OB as already scheduled.
== END 2020-09-05 19:40 | disposition home or self-care (01) ==
LOC: ED 17:42
DX: O90.89 Other complications of the puerperium, not elsewhere classified (principal); O34.211 Maternal care for low transverse scar from previous cesarean delivery
CPT/HCPCS: 36415; 80053; 83605; 83690; 85025; 99282; 99283

== ENCOUNTER 2022-02-11 15:26 | Outpatient (CLI) | payer MEDICAID ==
[2022-02-11 17:44] LABS: BASOPHILS # (AUTO) 0.1 10^3/uL (0.0-0.1); BASOPHILS % (AUTO) 0.6 %; EOSINOPHILS # (AUTO) 0.2 10^3/uL (0.0-0.7); EOSINOPHILS % (AUTO) 2.3 %; HCT - HEMATOCRIT 39.2 % (37.0-47.0); HGB - HEMOGLOBIN 12.6 g/dL (12.0-16.0); LYMPHOCYTES # (AUTO) 3.4 10^3/uL (1.5-3.5); LYMPHOCYTES % (AUTO) 33.4 %; MEAN CORPUSCULAR HEMOGLOBIN 27.9 pg (27.0-31.0); MEAN CORPUSCULAR HGB CONC 32.1 g/dL (32.0-36.0); MEAN CORPUSCULAR VOLUME 86.7 fL (81.0-99.0); MEAN PLATELET VOLUME 10.2 fL (7.9-10.8); MONOCYTES # (AUTO) 0.7 10^3/uL (0.0-1.0); MONOCYTES % (AUTO) 6.5 %; NEUTROPHILS # (AUTO) 5.8 10^3/uL (1.5-6.6); PLT - PLATELET COUNT 537 10^3/uL (130-450); RED BLOOD COUNT 4.52 10^6/uL (4.20-5.40); RED CELL DISTRIBUTION WIDTH 13.9 % (12.0-15.0); WHITE BLOOD COUNT 10.1 x10^3/uL (4.8-10.8)
[2022-02-11 18:04] LABS: ALBUMIN 4.3 g/dL (3.2-5.5); ALBUMIN/GLOBULIN RATIO 1.3 (1.0-2.2); ALKALINE PHOSPHATASE 105 IU/L (42-121); ALT ALANINE AMINOTRANSFERASE 41 IU/L (10-60); AST ASPARTATE AMINOTRANSFERASE 29 IU/L (10-42); BILIRUBIN,TOTAL < 0.2 mg/dL (0.2-1.0); BUN - BLOOD UREA NITROGEN 16 mg/dL (6-20); CALCIUM 9.3 mg/dL (8.5-10.3); CARBON DIOXIDE - CO2 30 mmol/L (21-32); CHLORIDE 101 mmol/L (101-111); CHOL/HDL RATIO 3.8 (<4.4); CHOLESTEROL 227 mg/dL; CREATININE 0.6 mg/dL (0.4-1.0); GFR - MDRD 117 (>89); GLUCOSE 81 mg/dL (70-100); HDL CHOLESTEROL 59 mg/dL; LDL CHOLESTEROL,CALCULATED 110 mg/dL; LDL/HDL RATIO 1.9 (<4.4); POTASSIUM 3.7 mmol/L (3.5-5.0); SODIUM 139 mmol/L (135-145); TOTAL PROTEIN 7.7 g/dL (6.7-8.2); TRIGLYCERIDES 288 mg/dL; VLDL CHOLESTEROL 58 mg/dL
[2022-02-11 18:12] LABS: THYROID STIMULATING HORMONE 3.13 uIU/mL (0.34-5.60)
== END 2022-02-11 15:27 | disposition home or self-care (01) ==
LOC: LAB.N 15:26
PROVIDERS: ATTEND Family Medicine
DX: N92.0 Excessive and frequent menstruation with regular cycle (principal); R74.8 Abnormal levels of other serum enzymes
CPT/HCPCS: 36415; 80053; 80061; 83721; 84443; 85025

== ENCOUNTER 2022-08-28 14:16 | Emergency (ER) | payer MEDICAID ==
[2022-08-28 14:49] LABS: BILIRUBIN,URINE NEGATIVE (NEGATIVE); CLARITY,URINE CLOUDY (CLEAR); GLUCOSE, URINE (UA) NEGATIVE (NEGATIVE); KETONES,URINE (UA) NEGATIVE (NEGATIVE); LEUKOCYTE ESTERASE, URINE SMALL (NEGATIVE); NITRITE,URINE NEGATIVE (NEGATIVE); OCCULT BLOOD,URINE LARGE (NEGATIVE); PH,URINE 6.5 PH (5.0-7.5); PROTEIN,URINE 100 mg/dL (NEGATIVE); UROBILINOGEN,URINE 0.2 (NORMAL) E.U./dL (NORMAL)
[2022-08-28 14:50] LABS: HCG UR QUAL NEGATIVE
[2022-08-28 15:04] LABS: BACTERIA,URINE Moderate /HPF (None Seen); RBC,URINE TNTC /HPF (0-5); SQUAMOUS EPITHELIAL CELL,UR MOD Squamous (<= Few); WBC,URINE >25 /HPF (0-5)
[2022-08-28] MEDS ORDERED: NITROFURANTOIN MACRO 100 MG CAPSULE PO STA (15:09)
[2022-08-28] MEDS ORDERED: PHENAZOPYRIDINE 100 MG TABLET PO STA (15:09)
--- NOTE | 2022-08-28 15:10 | ED Physician Documentation ---
PD HPI FEMALE - Stated complaint Stated Complaint: FMALE - Chief complaint Chief Complaint: UTI - History obtained from History obtained from: Patient (31-year-old woman with about yearly bladder infections presents with 4 days of dysuria and frequency without flank pain or fevers. Consistent with prior episodes of UTI. She took Azo for couple of days which was helpful.) PD PAST MEDICAL HISTORY - Past Medical History Past Medical History: No Cardiovascular: None Respiratory: None Neuro: None Endocrine/Autoimmune: None GI: None BIOTECHNICIAN: None : None HEENT: None Psych: None Musculoskeletal: None Derm: None - Past Surgical History Past Surgical History: Yes /BIOTECHNICIAN: section HEENT: Myringotomy (tubes), Tonsil/Adenoidectomy - Present Medications Home Medications: Ambulatory Orders Medication Instructions Recorded Confirmed Ethinyl Estradiol/Drospirenone 1 tab PO DAILY 06/26/16 08/17/16 [Kerline 28 Tablet] Amoxicillin 1,000 mg PO TID #30 capsule 08/29/16 Amox/Clav 875/125 [Augmentin] 1 each PO Q12H #20 tablet 07/14/18 Azithromycin [Zithromax] 250 mg PO DAILY #6 tablet 07/26/18 cephALEXin [Keflex] 500 mg PO Q6H #28 cap 07/15/20 Acetaminophen [Acetaminophen Extra 1,000 mg PO Q8H PRN #60 tablet 08/26/20 Strength] Docusate Sodium 100Mg Capsule 100 - 200 mg PO BID PRN #60 cap 08/26/20 [Colace 100Mg Capsule] Ibuprofen [Motrin] 600 mg PO Q6H PRN #60 tab 08/26/20 Nitrofurantoin [Macrobid] 1 cap PO BID #10 cap 08/28/22 Phenazopyridine HCl [Pyridium] 200 mg PO TID PRN #6 tablet 08/28/22 - Allergies Allergies/Adverse Reactions: Allergies Allergy/AdvReac Type Severity Reaction Status Date / Time No Known Drug Allergies Allergy Verified 08/28/22 14:39 - Social History Does the pt smoke?: No Smoking Status: Never smoker Does the pt drink ETOH?: No Does the pt have substance abuse?: No - Immunizations Immunizations are current?: Yes - POLST Patient has POLST: No PD ED PE NORMAL - Vitals Vital signs reviewed: Yes - General General: Alert and oriented X 3, No acute distress - Abdomen Abdomen: Soft, Non tender - Back Back: No CVA TTP - Neuro Neuro: Alert and oriented X 3, Normal speech Results - Vitals Vitals: Vital Signs - 24 hr 08/28/22 14:36 Temperature 36.2 C L Heart Rate 87 Respiratory 16 Rate Blood Pressure 132/88 H O2 Saturation 99 Oxygen O2 Source Room air - Labs Labs: Laboratory Tests 08/28/22 14:28 Urine Color YELLOW Urine Clarity CLOUDY Urine pH 6.5 Ur Specific [place] >=1.030 H Urine Protein 100 H Urine Glucose (UA) NEGATIVE Urine Ketones NEGATIVE Urine Occult Blood LARGE H Urine Nitrite NEGATIVE Urine Bilirubin NEGATIVE Urine Urobilinogen 0.2 (NORMAL) Ur Leukocyte Esterase SMALL H Urine RBC TNTC H Urine WBC >25 H Ur Squamous Epith Cells MOD Squamous H Urine Bacteria Moderate H Ur Microscopic Review INDICATED Urine Culture Comments NOT INDICATED Urine HCG, Qual NEGATIVE Departure - Departure Disposition: Home, Self Care Clinical Impression: Cystitis Condition: Good Record reviewed to determine appropriate education?: Yes Instructions: ED UTI Cystitis Female Prescriptions: Nitrofurantoin [Macrobid] 1 cap PO BID #10 cap Phenazopyridine HCl [Pyridium] 200 mg PO TID PRN #6 tablet PRN Reason: dysuria Comments: We will culture your urine, the results should be done in 48-72 hours. If an antibiotic change is necessary we will call you. Return if worse in the meantime, especially if you develop increasing flank pain, fevers, or cannot keep down the medication.
[2022-08-28 15:18] VITALS: BP 130/67
== END 2022-08-28 15:17 | disposition home or self-care (01) ==
LOC: ED 14:16
DX: N30.90 Cystitis, unspecified without hematuria (principal)
CPT/HCPCS: 81001; 81025; 87077; 87086; 99283; A9270; 81003

== ENCOUNTER 2022-11-20 16:20 | Emergency (ER) | payer MEDICAID ==
[2022-11-20 16:33] VITALS: BP 136/77; O2SAT 99
[2022-11-20 16:38] LABS: BILIRUBIN,URINE NEGATIVE (NEGATIVE); GLUCOSE, URINE (UA) NEGATIVE (NEGATIVE); KETONES,URINE (UA) NEGATIVE (NEGATIVE); LEUKOCYTE ESTERASE, URINE NEGATIVE (NEGATIVE); NITRITE,URINE NEGATIVE (NEGATIVE); OCCULT BLOOD,URINE TRACE-INTA (NEGATIVE); PH,URINE 5.5 PH (5.0-7.5); PROTEIN,URINE NEGATIVE (NEGATIVE); UROBILINOGEN,URINE 0.2 (NORMAL) E.U./dL (NORMAL)
[2022-11-20] MEDS ORDERED: PHENAZOPYRIDINE 100 MG TABLET PO STA (16:39)
[2022-11-20 16:41] LABS: CLARITY,URINE CLEAR (CLEAR); HCG UR QUAL NEGATIVE
--- NOTE | 2022-11-20 17:01 | ED Physician Documentation ---
PD HPI FEMALE - Stated complaint Stated Complaint: FEMALE - Chief complaint Chief Complaint: UTI - History obtained from History obtained from: Patient - Additional information Additional information: Patient is a 32-year-old female presenting for evaluation of dysuria that has been present for the past 3 days. Patient is on her menstrual cycle. She denies associated pain but did report noticing discomfort when she inserted her tampon today. She denies vaginal discharge or concerns for STI. She denies a rash to the vaginal area. She denies concerns for . 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 : None HEENT: None Psych: None Musculoskeletal: None Derm: None - Past Surgical History Past Surgical History: Yes /BRANCH OFFICE ADMINISTRATOR: section HEENT: Myringotomy (tubes), Tonsil/Adenoidectomy - Present Medications Home Medications: Ambulatory Orders Medication Instructions Recorded Confirmed Ethinyl Estradiol/Drospirenone 1 tab PO DAILY 06/26/16 08/17/16 [Kerline 28 Tablet] Amoxicillin 1,000 mg PO TID #30 capsule 08/29/16 Amox/Clav 875/125 [Augmentin] 1 each PO Q12H #20 tablet 07/14/18 Azithromycin [Zithromax] 250 mg PO DAILY #6 tablet 07/26/18 cephALEXin [Keflex] 500 mg PO Q6H #28 cap 07/15/20 Acetaminophen [Acetaminophen Extra 1,000 mg PO Q8H PRN #60 tablet 08/26/20 Strength] Docusate Sodium 100Mg Capsule 100 - 200 mg PO BID PRN #60 cap 08/26/20 [Colace 100Mg Capsule] Ibuprofen [Motrin] 600 mg PO Q6H PRN #60 tab 08/26/20 Nitrofurantoin [Macrobid] 1 cap PO BID #10 cap 08/28/22 Phenazopyridine HCl [Pyridium] 200 mg PO TID PRN #6 tablet 08/28/22 Phenazopyridine HCl [Pyridium] 200 mg PO TID PRN #6 tablet 11/20/22 - Allergies Allergies/Adverse Reactions: Allergies Allergy/AdvReac Type Severity Reaction Status Date / Time No Known Drug Allergies Allergy Verified 08/28/22 14:39 - Social History Does the pt smoke?: No Smoking Status: Never smoker Does the pt drink ETOH?: No Does the pt have substance abuse?: No - Immunizations Immunizations are current?: Yes - POLST Patient has POLST: No PD ED PE NORMAL - General General: Alert and oriented X 3, No acute distress, Well developed/nourished - HEENT HEENT: Atraumatic, Moist mucous membranes, Pharynx benign - Neck Neck: Supple, no meningeal sign - Cardiac Cardiac: RRR - Respiratory Respiratory: No respiratory distress - Abdomen Abdomen: Soft, Non tender, Non distended - Female Female : Pt declined - Derm Derm: Warm and dry - Neuro Neuro: Normal speech Results - Vitals Vitals: Vital Signs - 24 hr 11/20/22 16:25 Temperature 36.2 C L Heart Rate 94 Respiratory 16 Rate Blood Pressure 136/77 H O2 Saturation 99 Oxygen O2 Source Room air - Labs Labs: Laboratory Tests 11/20/22 16:34 Urine Color YELLOW Urine Clarity CLEAR Urine pH 5.5 Ur Specific [place] >=1.030 H Urine Protein NEGATIVE Urine Glucose (UA) NEGATIVE Urine Ketones NEGATIVE Urine Occult Blood TRACE-INTA Urine Nitrite NEGATIVE Urine Bilirubin NEGATIVE Urine Urobilinogen 0.2 (NORMAL) Ur Leukocyte Esterase NEGATIVE Ur Microscopic Review NOT INDICATED Urine Culture Comments NOT INDICATED Urine HCG, Qual NEGATIVE PD Medical Decision Making - ED course Complexity details: reviewed results, re-evaluated patient ED course: Patient presenting for evaluation of dysuria for 3 days. Her abdominal exam is benign. Denies any pelvic pain. Patient declined pelvic exam. She is comfortable with obtaining self swabs. She denies vaginal discharge. Her urine analysis is reviewed and does not suggest infection. Vaginal swabs are pending. Patient was given a prescription for Pyridium for her dysuria and encouraged hydration. She is counseled on strict return precautions for any worsening symptoms. Departure - Departure Disposition: 01 Home, Self Care Clinical Impression: Dysuria Condition: Stable Instructions: ED Dysuria Uncertain Cause Prescriptions: Phenazopyridine HCl [Pyridium] 200 mg PO TID PRN #6 tablet PRN Reason: dysuria Comments: Your urine does not show an infection at this time. Therefore it is unclear why you are having some burning when you urinate. We did obtain cultures to check for a vaginal infection and to see if this is the cause of your symptoms. We will notify you of any abnormal results. I have sent a prescription for medicine to help with the burning to [facility] [place] in [place]. Return to the emergency department with any new or worsening symptoms. Discharge Date/Time: 11/20/22 17:11
[2022-11-20 18:57] LABS: BACTERIAL VAGINOSIS DNA NEGATIVE (NEGATIVE); CANDIDA GLABRATA DNA NEGATIVE (NEGATIVE); CANDIDA GROUP DNA POSITIVE (NEGATIVE); CANDIDA KRUSEI DNA NEGATIVE (NEGATIVE); TRICHOMONAS VAGINALIS DNA NEGATIVE (NEGATIVE)
[2022-11-20 20:25] LABS: CHLAMYDIA TRACHOMATIS DNA NEGATIVE (NEGATIVE); NEISSERIA GONORRHOEAE DNA NEGATIVE (NEGATIVE)
== END 2022-11-20 17:11 | disposition home or self-care (01) ==
LOC: ED 16:20
DX: R30.0 Dysuria (principal)
CPT/HCPCS: 81003; 81025; 81514; 87491; 87591; 99283; A9270; 81001; 87086; 87661

== ENCOUNTER 2023-04-29 12:38 | Outpatient (CLI) | payer OTHER, MEDICAID | END 2023-04-29 12:39 | disposition short-term general hospital (02) | LOC: EMS 12:38 | DX: M54.2 Cervicalgia (principal); R51.9 Headache, unspecified; M79.602 Pain in left arm; M79.601 Pain in right arm; V43.52XA Car driver injured in collision with other type car in traffic accident, initial encounter; W22.10XA Striking against or struck by unspecified automobile airbag, initial encounter; Y92.413 State road as the place of occurrence of the external cause | CPT/HCPCS: A0425; A0429 ==

== ENCOUNTER 2023-05-12 19:19 | Emergency (ER) | payer OTHER, MEDICAID ==
[2023-05-12 19:38] VITALS: BP 137/92; O2SAT 97
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
== END 2023-05-12 21:53 | disposition home or self-care (01) ==
LOC: ED 19:19
DX: S69.92XA Unspecified injury of left wrist, hand and finger(s), initial encounter (principal); V89.2XXA Person injured in unspecified motor-vehicle accident, traffic, initial encounter; Z79.899 Other long term (current) drug therapy; Z79.3 Long term (current) use of hormonal contraceptives
CPT/HCPCS: 99283